=== PATIENT | male | born 1980 | race Caucasian/White ===

== ENCOUNTER 2018-11-26 11:20 | Emergency (ER) | payer SELFPAY ==
--- NOTE | 2018-11-26 13:32 | EDPHYS ---
Physician Documentation [facility] Name: Fausto Gusman Age: 38 yrs Sex: Male : 1980 Arrival Date: 11/26/2018 Time: 11:24 Bed 11 Private MD: ED Physician Vitor Benton HPI: 11/26 13:29 This 38 yrs old Male presents to ER via Ambulatory with complaints of gs Toothache. 13:29 The patient presents with pain. The problem is located in the lower right second gs bicuspid. Onset: The symptoms/episode began/occurred 1 week(s) ago. Duration: The symptoms are continuous. Associated signs and symptoms: Pertinent negatives: fever, redness in area, swelling. Severity of symptoms: At their worst the symptoms were moderate, in the emergency department the symptoms are unchanged. The patient has experienced similar episodes in the past, a few times. Historical: - Allergies: 11:38 No Known Allergies; hj - Home Meds: 11:38 None [Active]; hj - PMHx: 11:38 None; hj - PSHx: 11:38 None; hj - Immunization history:: Adult Immunizations not up to date. - Social history:: Smoking status: Patient/guardian denies using tobacco, Patient/guardian denies using alcohol. - Ebola Screening: : Patient negative for fever greater than or equal to 101.5 degrees Fahrenheit, and additional compatible Ebola Virus Disease symptoms Patient denies exposure to infectious person Patient denies travel to an Ebola-affected area in the 21 days before illness onset. ROS: 13:29 All other systems are negative. gs Exam: 13:29 Head/Face: Normocephalic, atraumatic. Eyes: Pupils equal round and reactive to light, gs extra-ocular motions intact. Lids and lashes normal. Conjunctiva and sclera are non-icteric and not injected. Cornea within normal limits. Periorbital areas with no swelling, redness, or edema. Neck: Trachea midline, no thyromegaly or masses palpated, and no cervical lymphadenopathy. Supple, full range of motion without nuchal rigidity, or vertebral point tenderness. No Meningismus. Cardiovascular: Regular rate and rhythm with a normal S1 and S2. No gallops, murmurs, or rubs. Normal PMI, no JVD. No pulse deficits. Respiratory: Lungs have equal breath sounds bilaterally, clear to auscultation and percussion. No rales, rhonchi or wheezes noted. No increased work of breathing, no retractions or nasal flaring. Skin: Warm, dry with normal turgor. Normal color with no rashes, no lesions, and no evidence of cellulitis. MS/ Extremity: Pulses equal, no cyanosis. Neurovascular intact. Full, normal range of motion. Neuro: Awake and alert, GCS 15, oriented to person, place, time, and situation. Cranial nerves II-XII grossly intact. Motor strength 5/5 in all extremities. Sensory grossly intact. Cerebellar exam normal. Normal gait. 13:29 Constitutional: The patient appears alert, awake. 13:29 ENT: Dental exam: abscess, is not appreciated, cellulitis, is not appreciated, missing teeth, diffusely. Vital Signs: 11:38 BP 133 / 93; Pulse 90; Resp 18; Temp 98.1(O); Pulse Ox 97% on R/A; Weight 83.91 kg; Height 5 ft. 6 in. (167.64 cm); Pain 3/10; 11:38 Body Mass Index 29.86 (83.91 kg, 167.64 cm) MDM: 12:54 Patient medically screened. 13:29 Data reviewed: vital signs, nurses notes. Medical screen evaluation completed. [facility] emergency medical condition absent. Administered Medications: No medications were administered Disposition: 11/26/18 13:32 Discharged to Home. Impression: Encounter for screening, unspecified. - Condition is Stable. - Medication Reconciliation Form, Thank You Letter, Antibiotic Education, Prescription Opioid Use form. - Follow up: Private Physician; When: 2 - 3 days; Reason: Re-evaluation by your physician. Signatures: Becca Jameson RN RN Jeronimo Flores RN RN Vitor Benton MD MD Corrections: (The following items were deleted from the chart) 13:32 13:32 11/26/2018 13:32 Discharged to Home. Impression: Encounter for screening, iw unspecified. Condition is Stable. Forms are Medication Reconciliation Form, Thank You Letter, Antibiotic Education, Prescription Opioid Use. Follow up: Private Physician; When: 2 - 3 days; Reason: Re-evaluation by your physician.
--- NOTE | 2018-11-26 13:32 | ER ---
Nurse's Notes [facility] Name: Fausto Gusman Age: 38 yrs Sex: Male : 1980 Arrival Date: 11/26/2018 Time: 11:24 Bed 11 Private MD: Diagnosis: Encounter for screening, unspecified Presentation: 11/26 11:36 Presenting complaint: Patient states: i have an abscess tooth, its been getting worse;. hj Transition of care: patient was not received from another setting of care. Onset of symptoms was November 26, 2018. Risk Assessment: Do you want to hurt yourself or someone else? Patient reports no desire to harm self or others. Initial Sepsis Screen: Does the patient meet any 2 criteria? Yes Does the patient have a suspected source of infection? Yes:. Care prior to arrival: None. 11:36 Method Of Arrival: Ambulatory 11:36 Acuity: ROSSANA 4 hj Triage Assessment: 11:37 General: Appears in no apparent distress. uncomfortable, Behavior is calm, cooperative, hj appropriate for age. Pain: Complains of pain in tooth. EENT: Reports pain. Historical: - Allergies: 11:38 No Known Allergies; hj - Home Meds: 11:38 None [Active]; hj - PMHx: 11:38 None; hj - PSHx: 11:38 None; hj - Immunization history:: Adult Immunizations not up to date. - Social history:: Smoking status: Patient/guardian denies using tobacco, Patient/guardian denies using alcohol. - Ebola Screening: : Patient negative for fever greater than or equal to 101.5 degrees Fahrenheit, and additional compatible Ebola Virus Disease symptoms Patient denies exposure to infectious person Patient denies travel to an Ebola-affected area in the 21 days before illness onset. Screenin:37 Abuse screen: Denies threats or abuse. Denies injuries from another. Nutritional hj screening: No deficits noted. Tuberculosis screening: No symptoms or risk factors identified. Fall Risk None identified. Assessment: 13:00 General: Appears in no apparent distress. Behavior is calm, cooperative. Pain: iw Complains of pain in lower right second bicuspid. Neuro: Level of Consciousness is awake, alert, obeys commands, Oriented to person, place, time, situation, Moves all extremities. Full function. Cardiovascular: Patient's skin is warm and dry. Respiratory: Respiratory effort is even, unlabored, Respiratory pattern is regular. GI: No signs and/or symptoms were reported involving the gastrointestinal system. Derm: Skin is intact, is healthy with good turgor. Musculoskeletal: Range of motion: intact in all extremities. Vital Signs: 11:38 BP 133 / 93; Pulse 90; Resp 18; Temp 98.1(O); Pulse Ox 97% on R/A; Weight 83.91 kg; hj Height 5 ft. 6 in. (167.64 cm); Pain 3/10; 11:38 Body Mass Index 29.86 (83.91 kg, 167.64 cm) ED Course: 11:24 Patient arrived in ED. rg4 11:37 Triage completed. hj 11:38 Arm band placed on right wrist. hj 11:38 Patient has correct armband on for positive identification. Bed in low position. Call light in reach. Side rails up X 1. 12:24 Becca Jameson RN is Primary Nurse. iw 12:27 Vitor Benton MD is Attending Physician. gs 13:31 No provider procedures requiring assistance completed. Patient did not have IV access iw during this emergency room visit. Administered Medications: No medications were administered Outcome: 13:32 Discharge ordered by . gs 13:32 Patient left the ED. iw 13:32 Medical screen evaluation completed per provider. Patient declined treatment. iw 13:32 Condition: good 13:32 Following a medical screening exam, the patient was provided information regarding alternative care sites and resources available per registration personnel. Signatures: Becca Jameson RN RN Jeronimo Flores RN RN Liz Boateng 4 Vitor Benton MD MD gs Corrections: (The following items were deleted from the chart) 11:40 11:38 Pulse 90bpm; Resp 18bpm; Pulse Ox 97% RA; Temp 98.1F Oral; 83.91 kg; Height 5 ft. hj 6 in.; BMI: 29.8; Pain 3/10; hj
== END 2018-11-26 13:32 | disposition home or self-care (01) ==
LOC: ER 11:20
DX: Z13.9 Encounter for screening, unspecified (principal); K08.89 Other specified disorders of teeth and supporting structures
CPT/HCPCS: 99281

== ENCOUNTER 2019-12-05 00:01 | Inpatient (IN) | payer SELFPAY ==
[2019-12-05] MEDS ORDERED: ONDANSETRON 4 MG/2 ML VIAL ONE ×2 (00:28→07:05)
[2019-12-05] MEDS ORDERED: KETOROLAC 30 MG/ML INJ ONE (00:28)
[2019-12-05] MEDS ORDERED: NA CHLORIDE 0.9% 1,000 ML ONE ×4 (00:28→08:24)
[2019-12-05 00:53] LABS: Absolute Lymphocytes (CBC) 0.6 K/uL (0.7-4.9); Basophils % 0.3 % (0-1.3); Hematocrit 38.6 % (39.6-49.0); Lymphocytes % 3.3 % (15.3-44.8); MPV 8.4 fL (7.6-11.3); RBC Red Blood Cell Count 4.54 M/uL (4.33-5.43)
[2019-12-05 01:02] LABS: ALT/SGPT 18 U/L (12-78); AST/SGOT 12 U/L (15-37); Albumin 3.5 g/dL (3.4-5.0); Alkaline Phosphatase 159 U/L (45-117); BUN Blood Urea Nitrogen 13 mg/dL (7-18); Bicarbonate 27 mmol/L (21-32); Bilirubin Direct 0.1 mg/dL (0-0.2); Bilirubin Total 0.6 mg/dL (0.2-1.0); Glucose Level 315 mg/dL (74-106); Lipase 46 U/L (73-393); Potassium 4.1 mmol/L (3.5-5.1); Sodium Level 132 mmol/L (136-145)
[2019-12-05 01:55] LABS: Blood Morphology Comment NOT SEEN (NOT SEEN); Platelet Estimate ADEQ
[2019-12-05 03:31] LABS: Urine Bacteria <20 /HPF (NONE SEEN); Urine RBC <5 /HPF (NONE SEEN)
[2019-12-05 03:32] LABS: Urine Blood TRACE (NEG); Urine Glucose 2+ (NEG); Urine Protein NEGATIVE (NEG); Urine Specific Gravity <1.005 (1.005-1.030); Urine pH 5.5 (5.0-7.0)
[2019-12-05 03:32] LABS: Urine Urothelial Cells <5 /HPF (NONE SEEN)
[2019-12-05] MEDS ORDERED: PIPER/TAZO/NS 3.375gm 3.375 GM/100 ML BAG ONE (03:44)
--- NOTE | 2019-12-05 03:48 | ER ---
Nurse's Notes [facility] Name: Fausto Gusman Age: 39 yrs Sex: Male : 1980 Arrival Date: 12/05/2019 Time: 00:05 Bed 8 Private MD: Diagnosis: Acute appendicitis Presentation: 12/05 00:16 Presenting complaint: Patient states: he has been having right lower quad pain since bb yesterday the pain is constant, dull, and currently 5/10 he vomited x 1 today, denies diarrhea or fever. Transition of care: patient was not received from another setting of care. Onset of symptoms was December 03, 2019. Risk Assessment: Do you want to hurt yourself or someone else? Patient reports no desire to harm self or others. Initial Sepsis Screen: Does the patient meet any 2 criteria? No. Patient's initial sepsis screen is negative. Does the patient have a suspected source of infection? No. Patient's initial sepsis screen is negative. Care prior to arrival: None. 00:16 Method Of Arrival: Ambulatory bb 00:16 Acuity: ROSSANA 3 bb Historical: - Allergies: 00:18 No Known Allergies; bb - Home Meds: 00:18 None [Active]; bb - PMHx: 00:18 None; bb - PSHx: 00:18 None; bb - Immunization history:: Adult Immunizations up to date. - Coronavirus screen:: The patient has NOT traveled to [place] in the past 14 days. Proceed with normal triage process as indicated. - Social history:: Smoking status: Patient denies any tobacco usage or history of. - Ebola Screening: : No symptoms or risks identified at this time. Screenin:18 Abuse screen: Denies threats or abuse. Denies injuries from another. Nutritional sg screening: No deficits noted. Tuberculosis screening: No symptoms or risk factors identified. Never had TB. Fall Risk None identified. Assessment: 00:18 General: Appears in no apparent distress. uncomfortable, well groomed, well developed, sg well nourished, Behavior is calm, cooperative, appropriate for age. Pain: Complains of pain in abdomen Quality of pain is described as aching. Neuro: Level of Consciousness is awake, alert, obeys commands, Oriented to person, place, time, Speech is normal, Facial symmetry appears normal. Cardiovascular: Patient's skin is warm and dry. Chest pain is denied. Respiratory: Airway is patent Respiratory effort is even, unlabored, Respiratory pattern is regular, symmetrical. GI: Bowel sounds present X 4 quads. Abd is soft and non tender X 4 quads. GI: Reports lower abdominal pain, upper abdominal pain, nausea. : No signs and/or symptoms were reported regarding the genitourinary system. EENT: No signs and/or symptoms were reported regarding the EENT system. Derm: Skin is pink, warm \T\ dry. Musculoskeletal: Circulation, motion, and sensation intact. Range of motion: intact in all extremities. 02:14 Reassessment: Patient appears in no apparent distress at this time. Patient and/or rv family updated on plan of care and expected duration. Pain level reassessed. Patient is alert, oriented x 3, equal unlabored respirations, skin warm/dry/pink. Patient denies pain at this time. Patient states feeling better. Patient states symptoms have improved. 03:48 Reassessment: Patient appears in no apparent distress at this time. Patient and/or rv family updated on plan of care and expected duration. Pain level reassessed. Patient is alert, oriented x 3, equal unlabored respirations, skin warm/dry/pink. PATIENT IS FOR REFERRAL TO SURGERY. AWAITING ADMISSION ORDERS. PATIENT IS ALERT AND ORIENTED. DENIES ANY PAIN AND NAUSEA. Patient denies pain at this time. Patient states feeling better. Patient states symptoms have improved. 05:26 Reassessment: Patient appears in no apparent distress at this time. Patient and/or rv family updated on plan of care and expected duration. Pain level reassessed. Patient is alert, oriented x 3, equal unlabored respirations, skin warm/dry/pink. patient is asleep comfortably on the bed. still tachycardic at 120s. afebrile. still awaiting room assignment. Vital Signs: 00:18 BP 135 / 80; Pulse 115; Resp 18 S; Temp 100(O); Pulse Ox 96% on R/A; Weight 81.65 kg bb (R); Height 5 ft. 5 in. (165.10 cm) (R); Pain 5/10; 01:00 BP 124 / 70; Pulse 106; Resp 17; Pulse Ox 97% on R/A; rv 02:08 BP 125 / 76; Pulse 101; Resp 18; Temp 99.4; Pulse Ox 96% on R/A; rv 02:13 Pain 0/10; rv 02:35 BP 123 / 72; Pulse 104; Resp 19; Pulse Ox 100% ; Pain 0/10; rv 03:00 BP 124 / 75; Pulse 101; Resp 18; Pulse Ox 97% on R/A; rv 03:30 BP 123 / 73; Pulse 100; Resp 18; Temp 98.9(O); Pulse Ox 97% on R/A; rv 04:00 BP 135 / 79; Pulse 104; Resp 16; Pulse Ox 97% on R/A; rv 04:30 BP 135 / 78; Pulse 109; Resp 17; Pulse Ox 96% on R/A; rv 05:00 BP 153 / 89; Pulse 114; Resp 16; Pulse Ox 96% on R/A; rv 00:18 Body Mass Index 29.95 (81.65 kg, 165.10 cm) bb ED Course: 00:05 Patient arrived in ED. jg7 00:09 Oscar Herzog NP is PHCP. pm1 00:09 Aniket Jay MD is Attending Physician. pm1 00:18 Triage completed. bb 00:18 Daniel Catalan, LUZ is Primary Nurse. sg 00:18 Arm band placed on Patient placed in an exam room, on a stretcher, on pulse oximetry. bb 00:25 Inserted saline lock: 18 gauge in right forearm, using aseptic technique. Blood rv collected. 02:10 Patient has correct armband on for positive identification. Placed in gown. Bed in low rv position. Call light in reach. Side rails up X 1. Pulse ox on. NIBP on. 03:16 CT Abd/Pelvis - IV Contrast Only In Process Unspecified. EDMS 03:47 Nicholas Núñez MD is Hospitalizing Provider. pm1 06:21 No provider procedures requiring assistance completed. Patient admitted, IV remains in rv place. Administered Medications: 00:28 Drug: NS 0.9% 1000 ml Route: IV; Rate: 1000 ml; Site: right antecubital; sg 02:14 Follow up: IV Status: Completed infusion; IV Intake: 1000ml rv 00:28 Drug: TORadol - Ketorolac 15 mg Route: IVP; Site: right antecubital; sg 02:13 Follow up: Pain 0/10 Adult; Response: No adverse reaction; Marked relief of symptoms; rv Pain is decreased 00:28 Drug: Zofran 4 mg Route: IVP; Site: right antecubital; sg 02:13 Follow up: Response: No adverse reaction; Nausea is decreased rv 03:45 Drug: Zosyn 3.375 grams Route: IVPB; Infused Over: 60 mins; Site: right forearm; rv 06:21 Follow up: IV Status: Completed infusion rv 03:46 Drug: NS 0.9% 1000 ml Route: IV; Rate: 125 ml/hr; Site: right forearm; rv 06:21 Follow up: IV Status: Completed infusion rv 03:46 CANCELLED (Duplicate Order): NS 0.9% 1000 ml IV at 125 ml/hr continuous rv Intake: 02:14 IV: 1000ml; Total: 1000ml. rv Outcome: 03:47 Decision to Hospitalize by Provider. pm1 05:56 Patient left the ED. rv 06:22 Admitted to Med/surg accompanied by tech, via wheelchair, room 214, with chart, Report rv called to BRIAN ESCOBAR 06:22 Condition: good 06:22 Discharge instructions given to patient, Instructed on the need for admit, Demonstrated understanding of instructions. Signatures: Dispatcher [employer] EDMS Daniel Catalan RN RN sg Ballard, Brenda, RN RN bb Marinas, Patrick, EBENEZER LICENSED CLINICAL PSYCHOLOGIST pm1 Pramod Arias RN RN rv Juani Dominguezg7 Corrections: (The following items were deleted from the chart) 03:48 03:30 BP 123 / 73; Pulse 100bpm; Resp 18bpm; Pulse Ox 97% RA; rv rv
--- NOTE | 2019-12-05 03:49 | EDPHYS ---
Physician Documentation [facility] Name: Fausto Gusman Age: 39 yrs Sex: Male : 1980 Arrival Date: 12/05/2019 Time: 00:05 Bed 8 Private MD: ED Physician Aniket Jay HPI: 12/05 02:04 This 39 yrs old Male presents to ER via Ambulatory with complaints of pm1 Abdominal Pain. 02:04 The patient presents with abdominal pain right lower quadrant. pm1 02:05 Onset: The symptoms/episode began/occurred yesterday. The symptoms do not radiate. pm1 Associated signs and symptoms: Pertinent positives: vomit x 1, Pertinent negatives: diarrhea, dysuria, fever. The symptoms are described as achy, constant. Modifying factors: The symptoms are alleviated by nothing, the symptoms are aggravated by nothing. Severity of pain: in the emergency department the pain is actually worse. The patient has not experienced similar symptoms in the past. Historical: - Allergies: 00:18 No Known Allergies; bb - Home Meds: 00:18 None [Active]; bb - PMHx: 00:18 None; bb - PSHx: 00:18 None; bb - Immunization history:: Adult Immunizations up to date. - Coronavirus screen:: The patient has NOT traveled to [place] in the past 14 days. Proceed with normal triage process as indicated. - Social history:: Smoking status: Patient denies any tobacco usage or history of. - Ebola Screening: : No symptoms or risks identified at this time. ROS: 02:05 Constitutional: Negative for fever, chills, and weight loss, Cardiovascular: Negative pm1 for chest pain, palpitations, and edema, Respiratory: Negative for shortness of breath, cough, wheezing, and pleuritic chest pain. 02:05 : Negative for injury, bleeding, discharge, and swelling, MS/Extremity: Negative for injury and deformity, Skin: Negative for injury, rash, and discoloration, Neuro: Negative for headache, weakness, numbness, tingling, and seizure. 02:05 Abdomen/GI: Positive for abdominal pain, nausea and vomiting, of the right lower quadrant, Negative for diarrhea, constipation. 02:05 Back: Positive for flank pain, on the right. Exam: 02:05 Constitutional: This is a well developed, well nourished patient who is awake, alert, pm1 and in no acute distress. Head/Face: Normocephalic, atraumatic. Neck: Trachea midline, no thyromegaly or masses palpated, and no cervical lymphadenopathy. Supple, full range of motion without nuchal rigidity, or vertebral point tenderness. No Meningismus. Chest/axilla: Normal chest wall appearance and motion. Nontender with no deformity. No lesions are appreciated. Cardiovascular: Regular rate and rhythm with a normal S1 and S2. No gallops, murmurs, or rubs. Normal PMI, no JVD. No pulse deficits. Respiratory: Lungs have equal breath sounds bilaterally, clear to auscultation and percussion. No rales, rhonchi or wheezes noted. No increased work of breathing, no retractions or nasal flaring. 02:05 Back: No spinal tenderness. No costovertebral tenderness. Full range of motion. Skin: Warm, dry with normal turgor. Normal color with no rashes, no lesions, and no evidence of cellulitis. MS/ Extremity: Pulses equal, no cyanosis. Neurovascular intact. Full, normal range of motion. 02:05 Abdomen/GI: Inspection: abdomen appears normal, Bowel sounds: normal, Palpation: soft, moderate abdominal tenderness, in the right lower quadrant, mass, is not appreciated, rebound tenderness, is not appreciated. 02:05 Neuro: Orientation: is normal, Motor: is normal, moves all fours. Vital Signs: 00:18 BP 135 / 80; Pulse 115; Resp 18 S; Temp 100(O); Pulse Ox 96% on R/A; Weight 81.65 kg bb (R); Height 5 ft. 5 in. (165.10 cm) (R); Pain 5/10; 01:00 BP 124 / 70; Pulse 106; Resp 17; Pulse Ox 97% on R/A; rv 02:08 BP 125 / 76; Pulse 101; Resp 18; Temp 99.4; Pulse Ox 96% on R/A; rv 02:13 Pain 0/10; rv 02:35 BP 123 / 72; Pulse 104; Resp 19; Pulse Ox 100% ; Pain 0/10; rv 03:00 BP 124 / 75; Pulse 101; Resp 18; Pulse Ox 97% on R/A; rv 03:30 BP 123 / 73; Pulse 100; Resp 18; Temp 98.9(O); Pulse Ox 97% on R/A; rv 04:00 BP 135 / 79; Pulse 104; Resp 16; Pulse Ox 97% on R/A; rv 04:30 BP 135 / 78; Pulse 109; Resp 17; Pulse Ox 96% on R/A; rv 05:00 BP 153 / 89; Pulse 114; Resp 16; Pulse Ox 96% on R/A; rv 00:18 Body Mass Index 29.95 (81.65 kg, 165.10 cm) bb MDM: 00:11 Patient medically screened. serjio 02:12 Data reviewed: vital signs. Data interpreted: Pulse oximetry: on room air is 96 %. pm1 Interpretation: normal. 03:33 Counseling: I had a detailed discussion with the patient and/or guardian regarding: the pm1 historical points, exam findings, and any diagnostic results supporting the discharge/admit diagnosis, lab results, radiology results, the need for further work-up and treatment in the hospital. 03:39 ED course: Patient last ate or drank at 1800 yesterday. pm1 03:46 Physician consultation: Nicholas Núñez MD was called at 03:46, was contacted at 03:46, pm1 regarding admission, and will see patient in OR, at 0700. 12/05 00:22 Order name: Basic Metabolic Panel; Complete Time: 01:34 pm12/05 00:22 Order name: CBC with Diff; Complete Time: 02:12 pm12/05 00:22 Order name: Creatinine for Radiology pm1 12/05 00:22 Order name: Hepatic Function; Complete Time: :34 pm12/05 00:22 Order name: Lipase; Complete Time: :34 pm12/05 00:22 Order name: Urine Microscopic Only; Complete Time: 03:40 pm1 12/05 00:22 Order name: CT Abd/Pelvis - IV Contrast Only pm1 12/05 01:18 Order name: Manual Differential; Complete Time: 02:12 EDMS 12/05 02:32 Order name: Urine Dipstick--Ancillary (enter results); Complete Time: 03:40 ar5 12/05 00:22 Order name: IV Saline Lock; Complete Time: 00:31 pm1 12/05 00:22 Order name: Labs collected and sent; Complete Time: 00:31 pm1 12/05 00:22 Order name: Urine Dipstick-Ancillary (obtain specimen); Complete Time: 02:20 pm1 12/05 03:39 Order name: NPO; Complete Time: 03:46 pm1 Administered Medications: 00:28 Drug: NS 0.9% 1000 ml Route: IV; Rate: 1000 ml; Site: right antecubital; sg 02:14 Follow up: IV Status: Completed infusion; IV Intake: 1000ml rv 00:28 Drug: TORadol - Ketorolac 15 mg Route: IVP; Site: right antecubital; sg 02:13 Follow up: Pain 0/10 Adult; Response: No adverse reaction; Marked relief of symptoms; rv Pain is decreased 00:28 Drug: Zofran 4 mg Route: IVP; Site: right antecubital; sg 02:13 Follow up: Response: No adverse reaction; Nausea is decreased rv 03:45 Drug: Zosyn 3.375 grams Route: IVPB; Infused Over: 60 mins; Site: right forearm; rv 06:21 Follow up: IV Status: Completed infusion rv 03:46 Drug: NS 0.9% 1000 ml Route: IV; Rate: 125 ml/hr; Site: right forearm; rv 06:21 Follow up: IV Status: Completed infusion rv 03:46 CANCELLED (Duplicate Order): NS 0.9% 1000 ml IV at 125 ml/hr continuous rv Disposition: 07:07 Co-signature as Attending Physician, Aniket Jay MD I agree with the assessment and serjio plan of care. Disposition: 12/05/19 03:47 Hospitalization ordered by Nicholas Núñez for Inpatient Admission. Preliminary diagnosis is Acute appendicitis. - Bed requested for Telemetry/MedSurg (Inpatient). - Status is Inpatient Admission. rv - Condition is Stable. - Problem is new. - Symptoms have improved. Signatures: Dispatcher [employer] EDMS Daniel Catalan RN RN sg Anderson, Corey, MD MD cha Ballard, Brenda, RN RN bb Garcia, Cindy, RN RN cg Marinas, Patrick, NP INDEPENDENT DISTRIBUTOR pm1 Pramod Arias RN RN rv Corrections: (The following items were deleted from the chart) 03:46 03:46 NS 0.9% 1000 ml IV at 125 ml/hr continuous ordered. rv rv 05:20 03:47 Hospitalization Ordered by Nicholas Wilton MD for Inpatient Admission. Preliminary cg diagnosis is Acute appendicitis. Bed requested for Telemetry/MedSurg (Inpatient). Status is Inpatient Admission. Condition is Stable. Problem is new. Symptoms have improved. pm1 05:56 05:20 12/05/2019 03:47 Hospitalization Ordered by Nicholas Núñez MD for Inpatient rv Admission. Preliminary diagnosis is Acute appendicitis. Bed requested for Telemetry/MedSurg (Inpatient). Status is Inpatient Admission. Condition is Stable. Problem is new. Symptoms have improved. cg
[2019-12-05] MEDS ORDERED: ONDANSETRON 4 MG/2 ML VIAL IV PRN ×2 (05:51→08:31)
[2019-12-05] MEDS ORDERED: MORPHINE 4 MG/ML SYR IV PRN (05:51)
[2019-12-05] MEDS: NA CHLORIDE 0.9% 1,000 ML IV SCH ×2 (05:51→16:39)
[2019-12-05] MEDS ORDERED: PIPER/TAZO/NS 3.375gm 3.375 GM/100 ML BAG IVPB SCH (06:00)
[2019-12-05 06:36] VITALS: BMI 29.9
[2019-12-05] MEDS ORDERED: propofoL 200 MG/20 ML VIAL IV ONE (07:00)
[2019-12-05] MEDS ORDERED: MIDAZOLAM HCL 2 MG/2 ML INJ ONE (07:01)
[2019-12-05] MEDS ORDERED: GLYCOPYRROLATE 0.2 MG/ML SYR ONE (07:01)
[2019-12-05] MEDS ORDERED: LIDOCAINE 2% MPF 5 ML VIAL ONE (07:01)
[2019-12-05] MEDS ORDERED: ROCURONIUM 50 MG/5 ML VIAL IV ONE (07:02)
[2019-12-05] MEDS ORDERED: FENTANYL CITR 250 MCG/5 ML ONE (07:02)
[2019-12-05] MEDS ORDERED: METRONIDAZOLE 500mg IVPB 500 MG/100 ML BAG IV ONE (07:06)
[2019-12-05] MEDS ORDERED: CEFOXITIN/SWI 1gm 1 GM/10 ML SYR ONE (07:13)
--- NOTE | 2019-12-05 07:26 | PREOPCON ---
Date of Consultation: 12/05/2019 Chief Complaint: Abdominal pain. History Of Present Illness: Patient is a 39-year-old gentleman, who comes in with 2-day history of r ight lower quadrant abdominal pain associated with nausea and vomiting x1. No diarrhea or constipati on. No blood in his stool. No dysuria or hematuria. No sore throat, runny nose, cough, or dizzines s. No chest pain. No fever or chills. Review of Systems: Otherwise unremarkable. Past Medical History: Hypertension; and based on current labs, could be diabetes. Past Surgical History: Negative. Allergies: NONE. Social History: He denies smoking or drinking. Family History: Significant for congestive heart failure. Physical Examination: Vital Signs: On admission were a blood pressure of 135/80, pulse rate of 115, temperature of 100. C urrently, he is afebrile and vitals are stable. General: He is awake, alert, oriented x3. Head and Neck: Cranial nerves 2 through 12 grossly within normal limits. No neck masses. No JVD. Throat clear. Neck is supple. Chest: Clear. Heart: S1 and S2. Abdomen: Soft, nondistended. Positive bowel sounds. Positive right lower quadrant tenderness with rebound. No rigidity or guarding. Extremities: Adequately perfused. Nontender. NEUROLOGIC: Nonfocal. Diagnostic Data: Patient has leukocytosis, 17.9, with a left shift. Electrolytes were reviewed. CT of the abdomen and pelvis shows appendix dilated up to 1.7 cm with a large appendicolith present wit hin the appendix, surrounding inflammatory stranding and air is present. The air is noted surroundin g the tip of the appendix. Assessment: Acute perforated appendicitis. Plan: Admit n.p.o., IV fluid, IV antibiotic, to the OR for laparoscopic appendectomy, possible open. Patient understands risks, benefits, and alternatives and agrees procedure. /MODL Voice ID: [id number] Report ID: [id number]
--- NOTE | 2019-12-05 08:08 | P.OP ---
Preoperative diagnosis: Acute Perforated Appendicitis Postoperative diagnosis: same Primary procedure: Laparoscopic Appendectomy Anesthesia: General Estimated blood loss: minimal Specimen: Appy Findings: as above Complications: None Drain(s): PRADEEP drain Transferred to: Recovery Room Condition: Good
[2019-12-05] MEDS ORDERED: HYDROMORPHONE HCL 1 MG/ML INJ IV PRN (08:31)
[2019-12-05] MEDS: HYDROMORPHONE HCL 1 MG/ML INJ ONE ×2 (08:50→08:55)
--- NOTE | 2019-12-05 08:55 | OP ---
Date of Procedure: 12/05/2019 Surgeon: Nicholas Núñez MD Preoperative Diagnosis: Acute perforated appendicitis. Postoperative Diagnosis: Acute perforated appendicitis. Procedure: Laparoscopic appendectomy. Estimated Blood Loss: Minimal. Specimen: Appendix. Findings: As above. Anesthesia: General. Complications: None. Disposition: Patient tolerated the procedure in stable condition and taken to Recovery in good gener al condition. Procedure In Detail: Patient was brought to the OR and placed in supine position. General anesthesi a was begun. Patient was prepped and draped in usual sterile fashion. Marcaine 0.5% was infiltrated locally. A 15 blade was used to make a 1 cm supraumbilical midline incision. Subcutaneous tissue w as divided. The fascia was identified and divided. A #1 Vicryl stay suture was placed. Peritoneal cavity was entered with blunt dissection. A 12-mm trocar was placed into the peritoneal cavity under direct vision. Pneumoperitoneum was established. Two 5-mm trocar was placed under direct vision, o ne in the suprapubic region one in the left lower quadrant. Laparoscopy revealed acute appendicitis with perforation and pus around the base of the appendix. Mesoappendix and base of the appendix and the cecum clearly identified. Endo-MARVA stapling device used to divide both structures. The appendic olith came out of the appendix where it was divided and this was retrieved as well as the appendix vi a EndoCatch bag. Right lower quadrant irrigated. There was lot of inflammatory tissue where the darius endix had been, therefore I decided to place a Haim-Grajeda drain #10 flat, secured with 3-0 nylon i n the right lower quadrant, pelvis region and the entire area were irrigated, effluent was clear. No evidence of bleeding or bowel injury appreciated. Subsequently, all trocars were removed under dire ct vision. Stay sutures were tied to each other to reapproximate the fascial defect. Subcu wounds w ere irrigated. Bleeding controlled with cautery. 3-0 chromic used to approximate the subcutaneous t issue and david used to close the skin. 2-0 nylon used to secure the tube to the skin as well. St erile dressing was applied. Patient was awakened and taken to Recovery in good general condition. /MODL Voice ID: [id number] Report ID: [id number]
--- NOTE | 2019-12-05 10:02 | RAD REPORT ---
EXAM DESCRIPTION: CT Abdomen and Pelvis With Intravenous Contrast CLINICAL HISTORY: The patient is 39 years old and is Male; RLQ PAIN TECHNIQUE: Axial computed tomography images of the abdomen and pelvis with intravenous contrast. S agittal and coronal reformatted images were created and reviewed. This CT exam was performed using one or more of the following dose reduction techniques: automated exposure control, adjustment of t he mA and/or kV according to patient size, and/or use of iterative reconstruction technique. COMPARISON: No relevant prior studies available. FINDINGS: LUNG BASES: Unremarkable. No mass. No consolidation. ABDOMEN: LIVER: There is a diffuse decrease in hepatic parenchymal density, consistent with fatty infiltr ation. GALLBLADDER AND BILE DUCTS: The gallbladder is physiologically distended. No calcified gallstone s are seen. PANCREAS: No ductal dilation. No mass. SPLEEN: Unremarkable. ADRENALS: Unremarkable. No mass. KIDNEYS AND URETERS: A left renal cyst measuring 1 cm is present. The kidneys enhance symmetrica lly. STOMACH AND BOWEL: The stomach is decompressed. The small bowel is normal in caliber. Stool is p resent throughout colon. There is no bowel obstruction. PELVIS: APPENDIX: The appendix is dilated measuring up to 1.7 cm. A large appendicolith is present withi n the appendix. Surrounding inflammatory stranding and air is present. Air is noted surrounding the t ip of the appendix. BLADDER: Unremarkable. No mass. REPRODUCTIVE: Unremarkable as visualized. ABDOMEN and PELVIS: INTRAPERITONEAL SPACE: Free fluid is present within the right lower quadrant. BONES/JOINTS: No acute fracture. SOFT TISSUES: The soft tissues are normal. VASCULATURE: Unremarkable. No abdominal aortic aneurysm. LYMPH NODES: Unremarkable. No enlarged lymph nodes. IMPRESSION: Acute perforated appendicitis. THIS REPORT CONTAINS FINDINGS THAT MAY BE CRITICAL TO PATIENT CARE: The findings were verbally discussed via telephone conference with PRIYA Herzog by Dr. Lb Harman on 12/05/19 3:32 AM CAPACITY PLANNING ENGINEER .The results were acknowledged and understood. Electronically signed by: Nilam Harman MD 12/05/2019 3:33 AM CAPACITY PLANNING ENGINEER Due to temporary technical issues with the PACS/Fluency reporting system, reports are being signed by the in house radiologist as a courtesy to ensure prompt reporting. The interpreting radiologist is f ully responsible for the content of the report.
[2019-12-05] MEDS: PIPER/TAZO/NS 3.375gm 3.375 GM/100 ML BAG IVPB SCH ×2 (11:07→16:37)
[2019-12-05] MEDS: HYDROCODONE/APAP 7.5/325 MG TAB PO PRN ×3 (11:09→20:38)
[2019-12-05] MEDS ORDERED: GLUCAGON 1 MG/VIAL IM PRN (12:08)
[2019-12-05] MEDS ORDERED: D50W 25 GM/50 ML SYRINGE IV PRN (12:08)
--- NOTE | 2019-12-05 12:08 | P.CNS ---
Date of Consult: 12/05/19 Reason for Consult: Hyperglycemic Requesting Physician: Nicholas Núñez Chief Complaint: Hyperglycemia History of Present Illness: 39-year-old gentleman with no known past medical history presented to the ED with abdominal pain. Patient found to have perforated appendicitis. He underwent laparoscopic appendectomy. The patient was noted to have hyperglycemia, blood sugar up to 315 and there is a concern patient may have diabetes. Hospitalist service is consulted to assist with management. Patient denies any history of diabetes. Allergies No Known Allergies Allergy (Unverified 12/05/19 04:20) Home Medications: NK [No Home Meds] 12/05/19 - Past Medical/Surgical History Diabetic: No -: none -: Laparoscopic appendectomy - Family History Father Medical History: Heart disease, Hypertension Notes: appe. alcoholism. , CHF Mother Medical History: Heart disease, Hypertension - Social History Smoking Status: Never smoker Alcohol use: No CD- Drugs: No Caffeine use: No Place of Residence: Home Review of Systems Other: Except as documented common all of the systems reviewed and negative. Physical Examination Temp Pulse Resp BP Pulse Ox 98.5 F 110 H 18 174/84 H 92 12/05/19 09:30 12/05/19 09:30 12/05/19 09:30 12/05/19 09:30 12/05/19 09:30 General: Alert, In no apparent distress, Oriented x3 HEENT: Mucous membr. moist/pink, Sclerae nonicteric Neck: Supple, JVD not distended Respiratory: Clear to auscultation bilaterally, Normal air movement Cardiovascular: No edema, Normal pulses, Regular rate/rhythm, Normal S1 S2 Capillary refill: <2 Seconds Gastrointestinal: Hypoactive, Tenderness (Diffuse.) Musculoskeletal: No swelling, No erythema Integumentary: No rashes Neurological: Normal speech, Normal strength at 5/5 x4 extr, Cranial nerves 3- 12 intact Laboratory Data (last 24 hrs) 12/05/19 00:25: Creatinine 0.91 12/05/19 00:25: WBC 17.9 H, Hgb 13.5 L, Hct 38.6 L, Plt Count 286 12/05/19 00:25: Sodium 132 L, Potassium 4.1, BUN 13, Creatinine 0.91, Glucose 315 H, Total Bilirubin 0.6, AST 12 L, ALT 18, Alkaline Phosphatase 159 H, Lipase 46 L - Problems (1) Acute appendicitis with appendiceal abscess Current Visit: Yes Status: Acute (2) Hyperglycemia Current Visit: Yes Status: Acute Conclusions/Impression: Continue current antibiotics-IV zosyn. Check hemoglobin A1c. Oral hypoglycemics or diet modifications based on hemoglobin A1c result. Will start Insulin sliding scale. DVT prophylaxis-SCD
[2019-12-05] MEDS: INSULIN -REGULAR HUMAN 50 UNIT/0.5 ML ML SQ SCH ×2 (16:36→20:38)
[2019-12-06] MEDS: PIPER/TAZO/NS 3.375gm 3.375 GM/100 ML BAG IVPB SCH ×3 (00:08→17:17)
[2019-12-06] MEDS: NA CHLORIDE 0.9% 1,000 ML IV SCH ×4 (00:08→13:41)
[2019-12-06] MEDS: HYDROCODONE/APAP 7.5/325 MG TAB PO PRN ×3 (03:06→17:19)
[2019-12-06 05:37] LABS: Absolute Lymphocytes (CBC) 0.7 K/uL (0.7-4.9); Basophils % 0.2 % (0-1.3); Hematocrit 31.8 % (39.6-49.0); Lymphocytes % 5.1 % (15.3-44.8); MPV 8.2 fL (7.6-11.3); RBC Red Blood Cell Count 3.73 M/uL (4.33-5.43)
[2019-12-06] MEDS: INSULIN -REGULAR HUMAN 50 UNIT/0.5 ML ML SQ SCH ×4 (07:56→20:58)
[2019-12-06] MEDS ORDERED: GLUCAGON 1 MG/VIAL IM PRN (11:18)
[2019-12-06] MEDS ORDERED: D50W 25 GM/50 ML SYRINGE IV PRN (11:18)
--- NOTE | 2019-12-06 12:30 | P.PN ---
Subjective Date of Service: 12/06/19 Chief Complaint: Hyperglycemia Patient has no complain today. Hemoglobin A1c results reviewed and indicating full blown DM type 2. Blood glucose readings have also been high. Physical Examination - Vital Signs Temperature: 99.3 F Blood Pressure: 111/64 Pulse: 113 Respirations: 19 Pulse Ox (%): 96 - Physical Exam General: Alert, In no apparent distress, Oriented x3 HEENT: Mucous membr. moist/pink, Sclerae nonicteric Neck: Supple Respiratory: Clear to auscultation bilaterally, Normal air movement Cardiovascular: No edema, Regular rate/rhythm, Normal S1 S2 Capillary refill: <2 Seconds Gastrointestinal: Hypoactive, Soft and benign, Non-distended Musculoskeletal: No swelling, No erythema Integumentary: No rashes Neurological: Normal speech, Normal strength at 5/5 x4 extr Assessment And Plan - Current Problems (Diagnosis) (1) Acute appendicitis with appendiceal abscess Current Visit: Yes Status: Acute (2) Hyperglycemia Current Visit: Yes Status: Acute (3) Diabetes mellitus type 2 in nonobese Current Visit: Yes Status: Acute - Plan Starts Novolin 70/30, 10 units bid and titrate. Continue insulin sliding scale. Start metformin on discharge. Leukocytosis is improving. Continue antibiotics.
--- NOTE | 2019-12-06 15:17 | PN ---
Date of Progress Note: 12/06/2019 Subjective: Patient is awake, alert. No complaint. Objective: Vital Signs: Stable. Afebrile. PRADEEP has 30 mL serosanguineous fluid. Abdomen: Benign. Laboratory Data: White count is down to 13,000. Assessment: Status post laparoscopic appendectomy for perforated appendicitis and newly diagnosed di abetes. Recommendations: I appreciate Dr. Gomez's consultation. Patient is being taught on diabetic inform ation. His sugar is being controlled and diabetic meds will be managed by Dr. Gomez. Continue IV a ntibiotics as ordered. Continue PRADEEP drain, likely home in 24 to 48 hours. /MODL Voice ID: [id number] Report ID: [id number]
[2019-12-06] MEDS: INSULIN 70/30 100 UNITS/ML SQ SCH (17:16)
[2019-12-07] MEDS: PIPER/TAZO/NS 3.375gm 3.375 GM/100 ML BAG IVPB SCH ×3 (00:07→18:26)
[2019-12-07] MEDS: NA CHLORIDE 0.9% 1,000 ML IV SCH ×4 (00:08→20:39)
[2019-12-07] MEDS: HYDROCODONE/APAP 7.5/325 MG TAB PO PRN ×2 (03:43→14:21)
[2019-12-07 05:41] LABS: Absolute Lymphocytes (CBC) 0.7 K/uL (0.7-4.9); Basophils % 0.3 % (0-1.3); Hematocrit 30.3 % (39.6-49.0); Lymphocytes % 4.5 % (15.3-44.8); MPV 8.1 fL (7.6-11.3); RBC Red Blood Cell Count 3.57 M/uL (4.33-5.43)
[2019-12-07 06:03] LABS: BUN Blood Urea Nitrogen 9 mg/dL (7-18); Bicarbonate 26 mmol/L (21-32); Glucose Level 152 mg/dL (74-106); Potassium 3.5 mmol/L (3.5-5.1); Sodium Level 133 mmol/L (136-145)
[2019-12-07] MEDS: INSULIN -REGULAR HUMAN 50 UNIT/0.5 ML ML SQ SCH ×4 (07:30→20:36)
[2019-12-07] MEDS: INSULIN 70/30 100 UNITS/ML SQ SCH ×2 (08:26→18:24)
--- NOTE | 2019-12-07 11:25 | P.PN ---
Subjective Date of Service: 12/07/19 Chief Complaint: Hyperglycemia Subjective: No new changes, Improving Review of Systems 10-point ROS is otherwise unremarkable Physical Examination - Vital Signs Temperature: 98.6 F Blood Pressure: 136/77 Pulse: 95 Respirations: 18 Pulse Ox (%): 94 - Physical Exam General: Alert, In no apparent distress HEENT: Atraumatic, Normocephalic Neck: Supple Respiratory: Clear to auscultation bilaterally Cardiovascular: No edema, Regular rate/rhythm Gastrointestinal: Soft and benign, W/out hepatosplenomegaly Musculoskeletal: No clubbing, No swelling Integumentary: No rashes Neurological: Normal gait, Normal speech Lymphatics: No axilla or inguinal lymphadenopathy External genitalia: Deferred Rectal: Deferred - Studies Laboratory Last Values WBC 14.7 K/uL (4.3-10.9) H 12/07/19 05:14 RBC 3.57 M/uL (4.33-5.43) L 12/07/19 05:14 Hgb 10.7 g/dL (13.6-17.9) L 12/07/19 05:14 Hct 30.3 % (39.6-49.0) L 12/07/19 05:14 MCV 85.1 fL (80-100) 12/07/19 05:14 MCH 30.1 pg (27.0-35.0) 12/07/19 05:14 MCHC 35.4 g/dL (32.0-36.0) 12/07/19 05:14 RDW 12.8 % (12.1-15.2) 12/07/19 05:14 Plt Count 248 K/uL (152-406) 12/07/19 05:14 MPV 8.1 fL (7.6-11.3) 12/07/19 05:14 Neutrophils % 83.9 % (41.7-73.7) H 12/07/19 05:14 Lymphocytes % 4.5 % (15.3-44.8) L 12/07/19 05:14 Monocytes % 10.6 % (3.3-12.3) 12/07/19 05:14 Eosinophils % 0.7 % (0-4.4) 12/07/19 05:14 Basophils % 0.3 % (0-1.3) 12/07/19 05:14 Absolute Neutrophils 12.3 K/uL (1.8-8.0) H 12/07/19 05:14 Segmented Neutrophils 85 % (40-80) H 12/05/19 00:25 Band Neutrophils 3 % (0-1) H 12/05/19 00:25 Absolute Lymphocytes 0.7 K/uL (0.7-4.9) 12/07/19 05:14 Lymphocytes 1 % (15-42) L 12/05/19 00:25 Monocytes 9 % (0-10) 12/05/19 00:25 Absolute Monocytes 1.6 K/uL (0.1-1.3) H 12/07/19 05:14 Eosinophils 1 % (0-3) 12/05/19 00:25 Absolute Eosinophils 0.1 K/uL (0-0.5) 12/07/19 05:14 Absolute Basophils 0.0 K/uL (0-0.5) 12/07/19 05:14 Reactive Lymphocytes 1 % 12/05/19 00:25 Morphology Comment Not seen (NOT SEEN) 12/05/19 00:25 Sodium 133 mmol/L (136-145) L 12/07/19 05:14 Potassium 3.5 mmol/L (3.5-5.1) 12/07/19 05:14 Chloride 100 mmol/L (98-107) 12/07/19 05:14 Carbon Dioxide 26 mmol/L (21-32) 12/07/19 05:14 BUN 9 mg/dL (7-18) 12/07/19 05:14 Creatinine 0.62 mg/dL (0.55-1.3) 12/07/19 05:14 Estimated GFR > 90 mL/min (=/>90) 12/07/19 05:14 Glucose 152 mg/dL (74-106) H 12/07/19 05:14 POC Glucose 138 mg/dl (65-120) H 12/07/19 07:19 Hemoglobin A1c 10.7 % (4.2-6.3) H 12/06/19 04:59 Calcium 8.1 mg/dL (8.5-10.1) L 12/07/19 05:14 Total Bilirubin 0.6 mg/dL (0.2-1.0) 12/05/19 00:25 Direct Bilirubin 0.1 mg/dL (0-0.2) 12/05/19 00:25 AST 12 U/L (15-37) L 12/05/19 00:25 ALT 18 U/L (12-78) 12/05/19 00:25 Alkaline Phosphatase 159 U/L (45-117) H 12/05/19 00:25 Serum Total Protein 8.0 g/dL (6.4-8.2) 12/05/19 00:25 Albumin 3.5 g/dL (3.4-5.0) 12/05/19 00:25 Globulin 4.5 g/dL (2.3-3.5) H 12/05/19 00:25 Albumin/Globulin Ratio 0.8 (1.1-1.8) L 12/05/19 00:25 Lipase 46 U/L (73-393) L 12/05/19 00:25 Urine pH 5.5 (5.0-7.0) 12/05/19 02:32 Ur Specific Dazey <1.005 (1.005-1.030) L 12/05/19 02:32 Glucose (UA)(Auto) 2+ (NEG) 12/05/19 02:32 Urine Ketones 2+ (NEG) H 12/05/19 02:32 Urine Blood Trace (NEG) H 12/05/19 02:32 Urine Nitrite Negative (NEG) 12/05/19 02:32 Ur Leukocyte Esterase Negative (NEG) 12/05/19 02:32 Urine RBC <5 /HPF (NONE SEEN) 12/05/19 02:20 Urine WBC <5 /HPF (<5) 12/05/19 02:20 Ur Squamous Epith Cells HOT PRESS OPERATOR 12/05/19 02:20 Ur Urothelial Cells <5 /HPF (NONE SEEN) 12/05/19 02:20 Urine Bacteria <20 /HPF (NONE SEEN) 12/05/19 02:20 Urine Culture Reflexed Not needed 12/05/19 02:20 Urine Total Protein Negative (NEG) 12/05/19 02:32 Assessment & Plan - Problems (Diagnosis) (1) Acute appendicitis with appendiceal abscess Current Visit: Yes Status: Acute (2) Diabetes mellitus type 2 in nonobese Current Visit: Yes Status: Acute (3) Hyperglycemia Current Visit: Yes Status: Acute Plan: Starts Novolin 70/30, 10 units bid and titrate. Continue insulin sliding scale. Start metformin on discharge. Leukocytosis is improving. Continue antibiotics. The patient looks more comfortable Possibly see in a.m. if cleared by surgery Time Spent Managing Pts Care (In Minutes): 42
--- NOTE | 2019-12-07 15:16 | PN ---
Date of Progress Note: 12/07/2019 Subjective: Patient is awake, alert. No complaints. PRADEEP is putting minimal serosanguineous drainage . White count is still elevated at 13,000. Objective: Vital Signs: Stable. Afebrile. Abdomen: Benign. Assessment: Status post laparoscopic appendectomy for perforated appendicitis. Plan: Continue IV antibiotics. Encourage ambulation and incentive spirometry. Probable discharge i n 24 to 48 hours. /MODL Voice ID: [id number] Report ID: [id number]
[2019-12-08] MEDS: PIPER/TAZO/NS 3.375gm 3.375 GM/100 ML BAG IVPB SCH ×2 (00:15→07:57)
[2019-12-08] MEDS: HYDROCODONE/APAP 7.5/325 MG TAB PO PRN ×2 (02:58→10:41)
[2019-12-08 05:57] LABS: Absolute Lymphocytes (CBC) 0.7 K/uL (0.7-4.9); Basophils % 0.6 % (0-1.3); Hematocrit 30.4 % (39.6-49.0); Lymphocytes % 6.7 % (15.3-44.8); MPV 7.8 fL (7.6-11.3); RBC Red Blood Cell Count 3.55 M/uL (4.33-5.43)
[2019-12-08 06:08] LABS: BUN Blood Urea Nitrogen 6 mg/dL (7-18); Bicarbonate 29 mmol/L (21-32); Glucose Level 153 mg/dL (74-106); Potassium 3.7 mmol/L (3.5-5.1); Sodium Level 137 mmol/L (136-145)
[2019-12-08] MEDS: INSULIN -REGULAR HUMAN 50 UNIT/0.5 ML ML SQ SCH ×2 (07:30→11:30)
[2019-12-08] MEDS: NA CHLORIDE 0.9% 1,000 ML IV SCH ×2 (07:57→13:51)
[2019-12-08] MEDS: INSULIN 70/30 100 UNITS/ML SQ SCH (07:58)
--- NOTE | 2019-12-08 09:39 | P.DS ---
Admission Date: 12/05/19 Discharge Date: 12/08/19 Disposition: ROUTINE DISCHARGE Discharge Condition: GOOD Reason for Admission: Hyperglycemia - Problems (1) Acute appendicitis with appendiceal abscess Current Visit: Yes Status: Acute (2) Diabetes mellitus type 2 in nonobese Current Visit: Yes Status: Acute (3) Hyperglycemia Current Visit: Yes Status: Acute Brief History of Present Illness: 39-year-old gentleman with no known past medical history presented to the ED with abdominal pain. Patient found to have perforated appendicitis. He underwent laparoscopic appendectomy. The patient was noted to have hyperglycemia, blood sugar up to 315 and there is a concern patient may have diabetes. Hospitalist service is consulted to assist with management. Patient denies any history of diabetes. Hospital Course: Started on Novolin 70/30, 10 units bid and titrated . Continue insulin sliding scale. Start metformin on discharge. Leukocytosis is improving. Continued antibiotics. The patient looks more comfortable He responded well to the treatment and is being discharged home today in a stable condition with advice to follow up with PCP in 1 week and also with Dr. Núñez in 1-2 weeks Vital Signs/Physical Exam: Temp Pulse Resp BP Pulse Ox 98.7 F 96 H 18 143/74 H 93 12/08/19 04:00 12/08/19 04:00 12/08/19 04:00 12/08/19 04:00 12/08/19 04:00 General: Alert, In no apparent distress HEENT: Atraumatic, Normocephalic Neck: Supple Respiratory: Clear to auscultation bilaterally Cardiovascular: Normal pulses, Regular rate/rhythm Gastrointestinal: Soft and benign, W/out hepatosplenomegaly Musculoskeletal: No swelling Integumentary: No rashes Neurological: Normal speech, Normal strength at 5/5 x4 extr Laboratory Data at Discharge: WBC 10.5 K/uL (4.3-10.9) D 12/08/19 05:07 Hgb 10.8 g/dL (13.6-17.9) L 12/08/19 05:07 Hct 30.4 % (39.6-49.0) L 12/08/19 05:07 Plt Count 288 K/uL (152-406) 12/08/19 05:07 Sodium 137 mmol/L (136-145) 12/08/19 05:07 Potassium 3.7 mmol/L (3.5-5.1) 12/08/19 05:07 BUN 6 mg/dL (7-18) L 12/08/19 05:07 Creatinine 0.60 mg/dL (0.55-1.3) 12/08/19 05:07 Glucose 153 mg/dL (74-106) H 12/08/19 05:07 Total Bilirubin 0.6 mg/dL (0.2-1.0) 12/05/19 00:25 AST 12 U/L (15-37) L 12/05/19 00:25 ALT 18 U/L (12-78) 12/05/19 00:25 Alkaline Phosphatase 159 U/L (45-117) H 12/05/19 00:25 Lipase 46 U/L (73-393) L 12/05/19 00:25 Home Medications: Insulin 70/30 NPH/Reg Human [Novolin 70/30*] 10 unit SQ BIDAC #1 vial 12/08/19 New Medications: Insulin 70/30 NPH/Reg Human [Novolin 70/30*] 10 unit SQ BIDAC #1 vial Diet: ADA Activity: Ad lasha Followup: Nicholas Núñez MD [ACTIVE - CAN ADMIT] - 1 Week (please call to make an appointment. ) Time spent managing pt's care (in minutes): 39
[2019-12-08 12:24] VITALS: O2SAT 91
[2019-12-08 14:18] VITALS: BP 164/82; TEMP 97.2
--- NOTE | 2019-12-09 02:54 | DS ---
Date of Discharge: 12/08/2019 Admitting Diagnosis: Perforated appendicitis. Discharge Diagnosis: Perforated appendicitis. Hospital Course: The patient is a 39-year-old gentleman who was admitted on the night of , morni ng of , had a perforated appendicitis, was taken to the OR, laparoscopic appendectomy was perform ed, drain was placed. Postoperatively, he is tolerating diet, ambulating. Pain controlled on p.o. p ain medication. White count is normal. There is a slight left shift. PRADEEP drain is putting out minim al serosanguineous fluid and therefore patient will be discharged to home. Disposition: Home. Condition: Stable. Discharge Instructions: Resume home medications and diet would be an 1800-calorie diet. Patient was newly diagnosed with diabetes and the hospitalists were consulted and they have managed his diabetes , provided education as well as medications as needed and he is to follow up with the PCP as an outpa tient. Follow up in my office in a week. Cipro and Flagyl prescription given, Tylenol No.3 for pain . No heavy lifting. May shower and DC PRADEEP drain prior to discharge. Condition is stable. /MODL Voice ID: [id number] Report ID: [id number]
== END 2019-12-08 13:52 | disposition home or self-care (01) | DRG 340 ==
LOC: ER 00:01 → ERHOLD 04:02 → 2ND 05:35
PROVIDERS: ADMIT Surgery; ATTEND Surgery
PROC: 0DTJ4ZZ Resection of Appendix, Percutaneous Endoscopic Approach (ICD-10-PCS; principal; 2019-12-05 07:00)
DX: K35.33 Acute appendicitis with perforation, localized peritonitis, and gangrene, with abscess (principal); I10 Essential (primary) hypertension; E11.65 Type 2 diabetes mellitus with hyperglycemia; Z79.4 Long term (current) use of insulin
CPT/HCPCS: 36415; 74177; 80048; 80076; 81003; 81015; 82947; 83036; 83605; 83690; 85025; 88304; 96361; 96365; 96366; 96375; 99285; J1170; J1815; J2250; J2405; J2543; J2704; J3010; J7030; Q9967

== ENCOUNTER 2023-07-14 15:08 | Emergency (ER) | payer SELFPAY ==
[2023-07-14] MEDS ORDERED: NA CHLORIDE 0.9% 1,000 ML ONE (15:35)
[2023-07-14] MEDS ORDERED: ACETAMINOPHEN 500 MG TAB ONE (15:35)
--- NOTE | 2023-07-14 15:38 | RAD REPORT ---
EXAM DESCRIPTION: Abida Covarrubias (2 Views)07/14/2023 3:30 pm CLINICAL HISTORY: fever COMPARISON: None FINDINGS: The lungs appear clear of acute infiltrate. The heart is normal size IMPRESSION: No acute abnormalities displayed
[2023-07-14 16:00] LABS: Absolute Lymphocytes (CBC) 0.8 K/uL (0.7-4.9); Hematocrit 29.5 % (39.6-49.0); MCV 83.4 fL (80-100); MPV 7.7 fL (7.6-11.3); Platelets 344 thou/uL (152-406); RBC Red Blood Cell Count 3.54 M/uL (4.33-5.43)
[2023-07-14 16:06] LABS: Protime INR 1.23
[2023-07-14 16:20] LABS: Potassium 3.7 mEq/L (3.5-5.1)
[2023-07-14 16:24] LABS: Albumin 2.3 g/dL (3.4-5.0); Bilirubin Direct 0.2 mg/dL (0-0.2); Bilirubin Indirect, Calculated 0.3 mg/dL (0.2-0.8); Bilirubin Total 0.5 mg/dL (0.2-1.0)
--- NOTE | 2023-07-14 16:37 | EDPHYS ---
Physician Documentation [facility] Name: Fausto Gusman Age: 43 yrs Sex: Male : 1980 Arrival Date: 07/14/2023 Time: 15:08 Bed 7 Private MD: ED Physician Zaki Iglesias HPI: 07/14 16:24 This 43 yrs old Male presents to ER via EMS with complaints of High Blood Sugar, ms3 Nausea/Vomiting, Fever, High Blood Pressure. 16:24 43-year-old male with past medical history of diabetes presents via [facility] ms3 for hyperglycemia, shortness of breath, fever that began on Wednesday night. Patient states he has not taken his insulin since June of last year. EMS notes patient's blood glucose level to be 500, temperature 100.1 orally, heart rate 120s, blood pressure 170/70, oxygen saturation 94% on room air. Patient denies pain at this time. Patient denies any alleviating or inciting factors.. Historical: - Allergies: 15:15 No Known Allergies; ld1 - PMHx: 15:15 Diabetes mellitus; ld1 - PSHx: 15:15 Appendectomy; ld1 - Immunization history:: Adult Immunizations up to date. - Social history:: Smoking status: Patient denies any tobacco usage or history of. Patient/guardian denies using alcohol. ROS: 16:24 ENT: Negative for injury, pain, and discharge, Neck: Negative for injury, pain, and ms3 swelling, Cardiovascular: Negative for chest pain, and palpitations. Respiratory: Negative for shortness of breath, cough, wheezing, and pleuritic chest pain, MS/Extremity: Negative for injury and deformity, Skin: Negative for injury, rash, and discoloration, 16:24 Constitutional: Positive for body aches, chills, fever, 16:24 Abdomen/GI: Positive for nausea and vomiting, 16:24 All other systems are negative, Exam: 16:24 Constitutional: This is a well developed, well nourished patient who is awake, alert, ms3 and in no acute distress. Head/Face: Normocephalic, atraumatic. Chest/axilla: Normal chest wall appearance and motion. Nontender with no deformity. Cardiovascular: Regular rate and rhythm with a normal S1 and S2. No gallops, murmurs, or rubs. Normal PMI, no JVD. No pulse deficits. Respiratory: Lungs have equal breath sounds bilaterally, clear to auscultation and percussion. No rales, rhonchi or wheezes noted. No increased work of breathing, no retractions or nasal flaring. Abdomen/GI: Soft, non-tender, with normal bowel sounds. No distension or tympany. No guarding or rebound. No evidence of tenderness throughout. Skin: Warm, dry with normal turgor. Normal color with no rashes, no lesions, and no evidence of cellulitis. MS/ Extremity: Pulses equal, no cyanosis. Neurovascular intact. Full, normal range of motion. 16:24 Cardiovascular: Rate: tachycardic, Rhythm: regular, Pulses: no pulse deficits are appreciated, Heart sounds: normal, normal S1and S2, 16:24 ECG was reviewed by the Attending Physician. Vital Signs: 15:13 BP 196 / 99; Pulse 119; Resp 25; Temp 101(O); Pulse Ox 94% on R/A; Weight 81.65 kg; ld1 Height 5 ft. 8 in. ; Pain 0/10; 15:13 Body Mass Index 27.37 (81.65 kg, 172.72 cm) ld1 15:13 Pain Scale: Adult ld1 MDM: 15:11 Patient medically screened. ms3 16:24 Differential diagnosis: DKA, hyperglycemia, Sepsis. ms3 16:40 Data reviewed: vital signs, nurses notes, lab test result(s), EKG, radiologic studies, ms3 plain films, and as a result, I will discharge patient. I considered the following discharge prescriptions or medication management in the emergency department Medications were administered in the Emergency Department. See MAR. Independent interpretation of the following test(s) in the Emergency Department X-Ray: My interpretation is CXR image reviewed by me does not reveal pna. Historians other than the Patient: EMS: [facility]. Counseling: I had a detailed discussion with the patient and/or guardian regarding the historical points, exam findings, and any diagnostic results supporting the discharge/admit diagnosis, lab results, radiology results, the need for outpatient follow up, to return to the emergency department if symptoms worsen or persist or if there are any questions or concerns that arise at home. Special discussion: I discussed with the patient/guardian in detail that at this point there is no indication for admission to the hospital. It is understood, however, that if the symptoms persist or worsen the patient needs to return immediately for re-evaluation. ED course: On reevaluation patient's symptoms resolved, patient alert and orient x4, no apparent distress, nontoxic-appearing, speaking full sentences. Patient to follow-up with Dr. Solomon in 2 to 3 days. Patient understands and agrees with plan. All questions were answered. Return precautions discussed include worsening symptoms, or any other concerns.. 07/14 15:13 Order name: Flu; Complete Time: 16:05 ms3 07/14 15:13 Order name: COVID-19 SARS RT PCR; Complete Time: 16:31 ms3 07/14 15:13 Order name: CBC with Diff; Complete Time: 16:05 ms3 07/14 15:13 Order name: BMP; Complete Time: 16:31 ms3 07/14 15:20 Order name: Blood Culture Adult (2) ms3 07/14 15:20 Order name: Lactate w/ 2H reflex if indic.; Complete Time: 16:31 ms3 07/14 15:20 Order name: Protime (+inr); Complete Time: 16:31 ms3 07/14 15:20 Order name: Ptt, Activated; Complete Time: 16:31 ms3 07/14 15:20 Order name: LFT's; Complete Time: 16:31 ms3 07/14 15:13 Order name: Chest Pa And Lat (2 Views) XRAY; Complete Time: 16:05 ms3 07/14 15:20 Order name: EKG; Complete Time: 15:21 ms3 07/14 15:20 Order name: Accucheck; Complete Time: 15:57 ms3 07/14 15:20 Order name: Cardiac monitoring; Complete Time: 15:25 ms3 07/14 15:20 Order name: EKG - Nurse/Tech; Complete Time: 15:57 ms3 07/14 15:20 Order name: IV Saline Lock - Large Bore; Complete Time: 15:25 ms3 07/14 15:20 Order name: Labs collected and sent; Complete Time: 15:57 ms3 07/14 15:20 Order name: O2 Per Protocol; Complete Time: 15:25 ms3 07/14 15:20 Order name: O2 Sat Monitoring; Complete Time: 15:25 ms3 07/14 15:20 Order name: Vital Signs; Complete Time: 15:25 ms3 EC:24 Rate is 110 beats/min. Rhythm is regular. Right axis deviation noted. WV interval is ms3 normal. QRS interval is normal. Clinical impression: NSR w/ Non-specific ST/T Changes. Interpreted by me. Reviewed by me. Administered Medications: 15:25 Drug: NS 0.9% IV 1000 ml IV at 1 bolus Per protocol; 1000 mL bolus Route: IV; Rate: 1 ld1 bolus; Site: right antecubital; 15:25 Drug: Acetaminophen PO 1000 mg PO once Route: PO; ld1 Disposition Summary: 07/14/23 16:36 Discharge Ordered Notes: Location: Home ms3 Condition: Stable ms3 Diagnosis - Fever, unspecified ms3 - Leukocytosis ms3 - Type 2 diabetes mellitus with hyperglycemia ms3 - Nausea with vomiting, unspecified ms3 Followup: ms3 - With: Arcenio Solomon DO - When: 2 - 3 days - Reason: Recheck today's complaints Discharge Instructions: - Discharge Summary Sheet ms3 - Type 2 Diabetes Mellitus, Diagnosis, Adult ms3 - Fever, Adult ms3 - Hyperglycemia ms3 - Nausea and Vomiting, Adult ms3 Forms: - Medication Reconciliation Form ms3 - Thank You Letter ms3 - Antibiotic Education ms3 - Prescription Opioid Use ms3 - Patient Portal Instructions ms3 - Leadership Thank You Letter ms3 Prescriptions: - metformin 500 mg Oral tablet - take 1 tablet ORAL route 2 times per day; 40 tablet; Refills: 0, Product ms3 Selection Permitted - ondansetron 4 mg Oral Tablet,disintegrating - take 1 tablet ORAL route every 8 hours; 15 tablet; Refills: 0, Product ms3 Selection Permitted Signatures: Dispatcher [employer] Zaki Abrams DO DO ms3 Zena Iglesias RN RN ld1
--- NOTE | 2023-07-14 16:37 | ER ---
Nurse's Notes [facility] Name: Fausto Gusman Age: 43 yrs Sex: Male : 1980 Arrival Date: 07/14/2023 Time: 15:08 Bed 7 Private MD: Diagnosis: Fever, unspecified;Leukocytosis;Type 2 diabetes mellitus with hyperglycemia;Nausea with vomiting, unspecified Presentation: 07/14 15:13 Chief complaint: EMS states: toned out to patient home for N/V, hyperglycemia, fever. ld1 Coronavirus screen: Client presents with at least one sign or symptom that may indicate coronavirus-19. Standard/surgical mask placed on the client. Ebola Screen: No symptoms or risks identified at this time. Initial Sepsis Screen: Does the patient meet any 2 criteria? RR > 20 per min. Temp <36.0*C (96.8*F)) or > 38.3*C (100.9*F). HR > 90 bpm. Does the patient have a suspected source of infection? No. Patient's initial sepsis screen is negative. Risk Assessment: Do you want to hurt yourself or someone else? Patient reports no desire to harm self or others. Onset of symptoms was July 14, 2023. 15:13 Method Of Arrival: EMS: [facility] ld1 15:13 Acuity: ROSSANA 2 ld1 Triage Assessment: 15:15 General: Appears in no apparent distress. comfortable, Behavior is calm, cooperative, ld1 appropriate for age. Pain: Denies pain. EENT: No signs and/or symptoms were reported regarding the EENT system. Neuro: Level of Consciousness is awake, alert, obeys commands, Oriented to person, place, time, situation. Cardiovascular: Capillary refill < 3 seconds Patient's skin is warm and dry. Rhythm is sinus tachycardia. Respiratory: Airway is patent Respiratory effort is even, unlabored. Respiratory: Reports shortness of breath at rest on exertion the patient has mild shortness of breath. GI: Abdomen is round non-distended, Reports nausea, vomiting. : No signs and/or symptoms were reported regarding the genitourinary system. Derm: Skin temperature is warm. Musculoskeletal: No signs and/or symptoms reported regarding the musculoskeletal system. Historical: - Allergies: 15:15 No Known Allergies; ld1 - PMHx: 15:15 Diabetes mellitus; ld1 - PSHx: 15:15 Appendectomy; ld1 - Immunization history:: Adult Immunizations up to date. - Social history:: Smoking status: Patient denies any tobacco usage or history of. Patient/guardian denies using alcohol. Screenin:16 [facility] ED Fall Risk Assessment (Adult) History of falling in the last 3 months, ld1 including since admission No falls in past 3 months (0 pts). Abuse screen: Denies threats or abuse. Denies injuries from another. Nutritional screening: No deficits noted. Tuberculosis screening: No symptoms or risk factors identified. Assessment: 15:16 Reassessment: See triage assessment. GI: Abdomen is flat, non-distended. ld1 15:57 Reassessment: See triage assessment. aa5 Vital Signs: 15:13 BP 196 / 99; Pulse 119; Resp 25; Temp 101(O); Pulse Ox 94% on R/A; Weight 81.65 kg; ld1 Height 5 ft. 8 in. ; Pain 0/10; 15:13 Body Mass Index 27.37 (81.65 kg, 172.72 cm) ld1 15:13 Pain Scale: Adult ld1 ED Course: 15:11 Patient arrived in ED. ms3 15:12 Zena Iglesias, LUZ is Primary Nurse. ld1 15:13 Zaki Iglesias DO is Attending Physician. ms3 15:15 Triage completed. ld1 15:15 Arm band placed on right wrist. ld1 15:16 Patient has correct armband on for positive identification. Placed in gown. Bed in low ld1 position. Call light in reach. Side rails up X2. pharmacist hospital on. Pulse ox on. NIBP on. Door closed. Noise minimized. Warm blanket given. 15:16 No provider procedures requiring assistance completed. Maintain EMS IV. Dressing ld1 intact. Good blood return noted. Site clean \T\ dry. Gauge \T\ site: 18G RAC. 15:25 COVID-19 SARS RT PCR Sent. ld1 15:25 Flu Sent. ld1 15:31 Chest Pa And Lat (2 Views) XRAY In Process Unspecified. EDMS 15:57 Inserted saline lock: 22 gauge in left forearm, using aseptic technique. Blood aa5 collected. 16:35 Arcenio Solomon DO is Referral Physician. ms3 16:56 IV discontinued, intact, bleeding controlled, No redness/swelling at site. ld1 Administered Medications: 15:25 Drug: NS 0.9% IV 1000 ml IV at 1 bolus Per protocol; 1000 mL bolus Route: IV; Rate: 1 ld1 bolus; Site: right antecubital; 15:25 Drug: Acetaminophen PO 1000 mg PO once Route: PO; ld1 Medication: 15:16 VIS not applicable for this client. ld1 Outcome: 16:36 Discharge ordered by MD. ms3 16:55 Discharged to home ambulatory, ld1 16:55 Condition: stable 16:55 Discharge instructions given to patient, Instructed on discharge instructions, follow up and referral plans. medication usage, Demonstrated understanding of instructions, follow-up care, medications, Prescriptions given X 2, 16:56 Patient left the ED. ld1 Signatures: Dispatcher [employer] EDMS Katie Dale, RN RN aa5 Zaki Iglesias, DO DO ms3 Zena Iglesias RN RN ld1
[2023-07-14 17:01] VITALS: BP 196/99; TEMP 101; O2SAT 94
--- NOTE | 2023-07-15 16:59 | EKG ---
Test Date: 2023-07-14 Test Time: 15:54:01 Industrial Laborer: Mateus SEGOVIA MEASUREMENT RESULTS: Intervals: Rate: 110 [place]: 154 QRSD: 82 QT: 318 QTc: 430 [place]: P: 50 [place]: 154 QRS: 115 T: -2 INTERPRETIVE STATEMENTS: Sinus tachycardia Left posterior fascicular block Abnormal QRS-T angle, consider primary T wave abnormality Abnormal ECG No previous ECG available for comparison Electronically Signed On 07-15-23 16:56:36 CDT by Anibal See
== END 2023-07-14 16:56 | disposition home or self-care (01) ==
LOC: ER 15:08
DX: R50.9 Fever, unspecified (principal); D72.829 Elevated white blood cell count, unspecified; E11.65 Type 2 diabetes mellitus with hyperglycemia; R11.2 Nausea with vomiting, unspecified
CPT/HCPCS: 36415; 71046; 80048; 80076; 83605; 85025; 85610; 85730; 87040; 87635; 87804; 93005; 99285; J7030

== ENCOUNTER 2023-08-14 20:34 | Emergency (ER) | payer SELFPAY ==
--- OUTSIDE RECORDS SUMMARY | 2023-08-14 20:36 | XMS REPORT | Continuity of Care Document ---
:1980 Author Organization [facility] t Address [address] [place] [address] [place] [id number] Care Team Providers Name Role Phone LORENZO MCNAMARA Attending Clinician Unavailable LORENZO MCNAMARA Admitting Clinician Unavailable Problems This patient has no known problems. Allergies, Adverse Reactions, Alerts This patient has no known allergies or adverse reactions. Medications This patient has no known medications. Procedures This patient has no known procedures. Encounters Start End Encounter Admission Attending Care Care Encounter Source Date/Time Date/Time Type Type Clinicians Facility Department ID 2023-07-30 2023-08-07 Inpatient E LORENZO MCNAMARA [facility] [id number] [facility] 13:57:00 16:20:00 67 Results This patient has no known results.
--- NOTE | 2023-08-14 21:03 | RAD REPORT ---
EXAM DESCRIPTION: RAD - Chest Single View - 08/14/2023 8:51 pm CLINICAL HISTORY: SOB COMPARISON: Chest Pa And Lat (2 Views) dated 07/14/2023 FINDINGS: Lines: None. Lungs: Diffuse prominence of the pulmonary interstitium. Pleural: No significant pleural effusions or pneumothorax. Cardiac: Mild cardiomegaly. Mediastinum: Within normal limits. Bones: No acute fractures. Other: None IMPRESSION: Pulmonary edema.
[2023-08-14 21:26] LABS: Absolute Lymphocytes (CBC) 0.8 K/uL (0.7-4.9); Hematocrit 22.3 % (39.6-49.0); MCV 85.3 fL (80-100); MPV 6.4 fL (7.6-11.3); Platelets 445 thou/uL (152-406); RBC Red Blood Cell Count 2.62 M/uL (4.33-5.43)
[2023-08-14 21:30] LABS: Protime INR 1.18
[2023-08-14] MEDS ORDERED: IPRATROPIUM BROM 0.5MG/2.5ML ONE (21:31)
[2023-08-14] MEDS ORDERED: ACETAMINOPHEN 500 MG TAB ONE (21:31)
[2023-08-14] MEDS ORDERED: FUROSEMIDE 40 MG/4 ML VIAL ONE (21:31)
[2023-08-14] MEDS ORDERED: ALBUTEROL 2.5 MG/3 ML NEB SOL ONE (21:31)
[2023-08-14 21:43] LABS: AST/SGOT 19 U/L (15-37); Albumin 1.8 g/dL (3.4-5.0); Alkaline Phosphatase 99 U/L (45-117); BUN Blood Urea Nitrogen 23 mg/dL (7-18); Bicarbonate 27 mEq/L (21-32); Bilirubin Total 0.2 mg/dL (0.2-1.0); Glomerular Filtration Rate 83 ml/min (=/>90); Glucose Level 159 mg/dL (74-106); NT PRO-BNP 4942 pg/mL (<125); Protein, Total 7.4 g/dL (6.4-8.2); Sodium Level 136 mEq/L (136-145)
[2023-08-14 22:00] LABS: ALT/SGPT < 10 U/L (16-61)
[2023-08-14 22:56] LABS: Specific Gravity 1.014 (1.005-1.030); Urine Bacteria None Seen /HPF (<20); Urine Bilirubin NEGATIVE (Negative); Urine Blood 2+ (Negative); Urine Clarity Turbid (Clear); Urine Color Light-Yellow (Yellow); Urine Crystals Unidentified Few /HPF (None Seen); Urine Glucose 1+ (Negative); Urine Mucus Slight /HPF (None Seen); Urine Protein 2+ (Negative); Urine RBC <5 /HPF (None Seen); Urine Urobilinogen Normal (Normal); Urine WBC Clump Rare /HPF (None Seen); Urine pH 5.5 (5.0-7.0)
[2023-08-14] MEDS ORDERED: PIPERACIL/TAZO 3.375 GM VIAL IV ONE (23:06)
[2023-08-14] MEDS ORDERED: VANCOMYCIN 1 GM/VIAL ONE (23:06)
[2023-08-14] MEDS ORDERED: NA CHLORIDE 0.9% 250 ML ONE (23:06)
[2023-08-14] MEDS ORDERED: NA CHLORIDE 0.9% 100 ML ONE (23:07)
--- NOTE | 2023-08-14 23:18 | RAD REPORT ---
EXAM DESCRIPTION: CT - Chest For Pe Angio - 08/14/2023 10:55 pm CLINICAL HISTORY: SOB COMPARISON: No comparisons TECHNIQUE: Dynamically enhanced axial 3 mm thick images of the chest were obtained during administra tion of <100> mL Isovue 370 IV contrast. Coronal and oblique reconstruction images were generated and reviewed. Exam utilizes a protocol for optimal evaluation of pulmonary arterial tree. Maximum intensity projections 3D imaging was utilized All CT scans are performed using dose optimization technique as appropriate and may include automated exposure control or mA/KV adjustment according to patient size. FINDINGS: Chest Wall: No suspicious thyroid nodules or pathologic lymphadenopathy. Lungs: Atelectasis as result of the pleural fluid. Interlobular septal thickening is present. Nodular opacity in the right middle lobe measuring approximately 11 millimeters. Pleura: Small bilateral pleural effusions. Mediastinum/selena: No pathologic lymphadenopathy. Pulmonary arteries/Aorta: Subsegmental pulmonary embolus in the lingula. No aortic aneurysm. Heart: No significant pericardial effusion. Normal heart size. Coronary artery calcifications in the LAD. Upper abdomen: No acute abnormality. Bones: No acute abnormality. IMPRESSION: Positive for pulmonary embolism with single subsegmental pulmonary embolus identified. C lot burden is low. Pulmonary edema with bilateral pleural effusions. Right middle lobe nodule could represent either alveolar edema or sequela of infection. Recommend six -month follow-up chest CT. Regarding PE, conveyed to Igor Saavedra by Dr. Lai at 1113 pm on 08/14/23
--- NOTE | 2023-08-14 23:26 | EDPHYS ---
Physician Documentation [facility] Name: Fausto Gusman Age: 43 yrs Sex: Male : 1980 Arrival Date: 08/14/2023 Time: 20:34 Bed 6 Private MD: ED Physician Ravin Mendoza HPI: 08/14 20:55 This 43 yrs old Male presents to ER via EMS with complaints of Shortness Of Breath. cp 20:55 The patient has shortness of breath at rest. cp 20:55 Onset: The symptoms/episode began/occurred today. Duration: The symptoms are cp continuous, and are steadily getting worse. Associated signs and symptoms: Pertinent positives: diaphoresis, fever, Pertinent negatives: chest pain, productive cough, hemoptysis, vomiting. Severity of symptoms: in the emergency department the symptoms have improved mildly. Patient reports history of right above the knee amputation that was done at [facility] about 10 days ago. Historical: - Allergies: 20:41 No Known Allergies; me1 - PMHx: 20:41 diabetes mellitus; me1 - PSHx: 20:41 Appendectomy; Right AKA; me1 - Immunization history:: Adult Immunizations up to date. - Social history:: Smoking status: Patient denies any tobacco usage or history of. ROS: 21:00 Constitutional: Positive for fever, Negative for body aches, chills, poor PO intake, cp 21:00 Eyes: Negative for injury, pain, redness, and discharge, cp 21:00 ENT: Negative for drainage from ear(s), ear pain, sore throat, difficulty swallowing, difficulty handling secretions, 21:00 Cardiovascular: Positive for edema, Negative for chest pain, 21:00 Respiratory: Positive for shortness of breath, at rest. 21:00 Abdomen/GI: Negative for abdominal pain, vomiting, diarrhea, constipation, 21:00 Neuro: Negative for altered mental status, syncope, 21:00 All other systems are negative, Exam: 21:05 Constitutional: The patient appears in no acute distress, alert, awake, non-toxic, well cp developed, well nourished, diaphoretic, 21:05 Head/Face: Normocephalic, atraumatic. cp 21:05 Eyes: Periorbital structures: appear normal, Conjunctiva: normal, no exudate, no injection, Sclera: no appreciated abnormality, Lids and lashes: appear normal, bilaterally, 21:05 ENT: External ear(s): are unremarkable, Nose: is normal, Mouth: Lips: moist, Oral mucosa: pink and intact, moist, Posterior pharynx: is normal, airway is patent, no erythema, no exudate, 21:05 Neck: ROM/movement: is normal, is supple, without pain, no range of motions limitations, 21:05 Chest/axilla: Inspection: normal, 21:05 Cardiovascular: Rate: tachycardic, Rhythm: regular, Edema: left ankle and foot edema noted, JVD: is not appreciated, 21:05 Respiratory: moderate respiratory distress is noted, Respirations: labored breathing, that is moderate, Breath sounds: decreased breath sounds, that are moderate, stridor, is not appreciated, wheezing: that is mild, is heard diffusely, 21:05 Abdomen/GI: Inspection: obese Palpation: abdomen is soft and non-tender, in all quadrants, 21:05 Musculoskeletal/extremity: Extremities: noted in the right leg: above the knee amputation. surgical site appears to be healing well, 21:05 Neuro: Orientation: to person, place \T\ time. Mentation: is normal, 21:45 ECG was reviewed by the Attending Physician. cp Vital Signs: 20:37 BP 150 / 88; Pulse 125; Resp 24; Temp 101.8(O); Pulse Ox 88% on 6 lpm NC; Weight 82.55 me1 kg; Height 5 ft. 6 in. ; 21:00 BP 147 / 87; Pulse 120; Resp 25; Pulse Ox 92% on 6 lpm NC; me1 21:38 BP 137 / 76; Pulse 116; Resp 21; Pulse Ox 100% on BiPAP; me1 22:00 BP 125 / 73; Pulse 114; Resp 20; Pulse Ox 100% on BiPAP; me1 22:00 BP 124 / 74; Pulse 105; Resp 22; Pulse Ox 100% on BiPAP; me1 23:36 Temp 98.1(O); rv1 11 00:00 BP 109 / 71; Pulse 92; Resp 20; Pulse Ox 100% on BiPAP; me1 00:30 BP 103 / 67; Pulse 93; Resp 20; Pulse Ox 100% on BiPAP; me1 01:00 BP 110 / 70; Pulse 87; Resp 20; Pulse Ox 100% on BiPAP; me1 01:30 BP 99 / 61; Pulse 90; Resp 19; Pulse Ox 100% on BiPAP; me1 02:30 BP 108 / 74; Pulse 87; Resp 17; Pulse Ox 100% on BiPAP; vc1 08/14 20:37 Body Mass Index 29.38 (82.55 kg, 167.64 cm) nd1 MDM: 08/14 20:43 Patient medically screened. cp 23:30 Data reviewed: vital signs, nurses notes, lab test result(s), EKG, radiologic studies, cp CT scan, plain films. 23:30 Antibiotic administration: Zosyn and Vancomycin. Independent interpretation of the cp following test(s) in the Emergency Department EKG: See my EKG interpretation above. Care significantly affected by the following chronic conditions: Diabetes. Counseling: I had a detailed discussion with the patient and/or guardian regarding the historical points, exam findings, and any diagnostic results supporting the discharge/admit diagnosis, lab results, radiology results, the need to transfer to another facility. Response to treatment: the patient's symptoms have markedly improved after treatment. 08/14 20:45 Order name: Blood Culture Adult (2) cp 08/14 20:45 Order name: CBC with Diff; Complete Time: 21:53 cp 08/14 21:53 Interpretation: Normal except: WBC 13.20; RBC 2.62; HGB 7.8; HCT 22.3; PLT 445; RDW cp 15.4; MPV 6.4; JUSTYNA% 83.3; LYM% 6.0; NEUT A 11.0. 08/14 20:45 Order name: CMP; Complete Time: 22:36 cp 08/14 22:36 Interpretation: Normal except: GLUC 159; BUN 23; GFR 83; ALT < 10; CA 8.3; ALB 1.8; cp GLOB 5.6; A/G 0.3. 08/14 20:45 Order name: Lactate w/ 2H reflex if indic.; Complete Time: 21:53 cp 08/14 20:45 Order name: Protime (+inr); Complete Time: 21:53 cp 08/14 20:45 Order name: Ptt, Activated; Complete Time: 21:53 cp 08/14 20:45 Order name: Urinalysis w/ reflexes; Complete Time: 22:58 cp 08/14 22:58 Interpretation: Normal except: UCLA Turbid; UGLUC 1+; UBLD 2+; UPROT 2+. / 20:45 Order name: COVID-19 SARS RT PCR; Complete Time: 22:36 cp 08/14 20:45 Order name: Influenza Screen (a \T\ B); Complete Time: 21:53 08/14 20:46 Order name: Troponin High Sensitivity; Complete Time: 22:36 08/14 22:36 Interpretation: Abnormal: Troponin HS 1300.0. 08/14 20:46 Order name: BNP; Complete Time: 22:36 08/14 22:37 Interpretation: NT PRO-BNP 4942; Reviewed. 08/14 21:45 Order name: Glucose, Ancillary Testing; Complete Time: 21:53 EDMS 08/14 22:58 Order name: ABG 08/15 02:46 Order name: Glucose, Ancillary Testing EDMS 08/14 20:45 Order name: Chest Single View XRAY; Complete Time: 21:53 08/14 21:54 Order name: CT Chest For PE Angio; Complete Time: 23:20 cp 08/14 20:45 Order name: EKG; Complete Time: 20:46 cp 08/14 20:45 Order name: Accucheck; Complete Time: 21:40 cp 08/14 20:45 Order name: Cardiac monitoring; Complete Time: 21:15 cp 08/14 20:45 Order name: EKG - Nurse/Tech; Complete Time: 21:40 08/14 20:45 Order name: IV Saline Lock - Large Bore; Complete Time: 21:15 cp 08/14 20:45 Order name: Labs collected and sent; Complete Time: 21:15 cp 08/14 20:45 Order name: O2 Per Protocol; Complete Time: 21:15 cp 08/14 20:45 Order name: O2 Sat Monitoring; Complete Time: 21:15 cp 08/14 20:45 Order name: Vital Signs; Complete Time: 21:15 cp EC:45 Rate is 113 beats/min. Rhythm is regular. TX interval is normal. QRS interval is cp normal. QT interval is normal. T waves are Inverted in lead aVR. Interpreted by me. Reviewed by me. Administered Medications: 21:27 Drug: DuoNeb Nebulize (2.5 mg - 0.5 mg) 3 ml Nebulizer once Route: Nebulizer; me1 22:49 Follow up: Response: No adverse reaction me1 21:27 Drug: Furosemide IVP 40 mg IVP once; give over 2 minutes Route: IVP; Site: right me1 antecubital; 22:49 Follow up: Response: No adverse reaction me1 21:28 Drug: Acetaminophen PO 1000 mg PO once Route: PO; me1 22:49 Follow up: Response: No adverse reaction me1 23:15 Drug: Piperacillin-Tazobactam IVPB 3.375 grams IVPB once over 60 mins; (mix in NS 100 me1 mL) Route: IVPB; Infused Over: 60 mins; Site: right antecubital; 08/15 00:17 Follow up: IV Status: Completed infusion me1 00:17 Drug: vancoMYCIN IVPB 1 grams IVPB once over 2 hrs Route: IVPB; Infused Over: 2 hrs; me1 Site: right antecubital; 01:05 Drug: Heparin (IA-Bolus No thrombolytic) - HEParin IVP 60 units/kg IVP once; Max 5000 me1 units {Note: per provider.} Route: IVP; Site: left hand; 01:07 Drug: Heparin (DVT/PE Drip) 18 units/kg/hr - ([place] [address] units, D5W IV 500 ml) IV me1 at calculated rate Per protocol; Max initial rate 1800 units/hr {Co-Signature: lg3 (Eugenia Lima RN).} {Note: 1487 units/hr.} Route: IV; Rate: calculated rate; Site: left hand; Disposition: 21:16 Co-signature as Attending Physician, Ravin Mendoza MD I agree with the assessment sp4 and plan of care. I reviewed the patient's care provided by the Advanced Practice Provider and agree with the diagnosis and treatment plan. 08/16 01:33 Critical Care:. cp Disposition Summary: 08/14/23 23:25 Transfer Ordered Notes: Transfer Location: [facility] cp Reason: Higher level of care cp Condition: Stable cp Problem: new cp Symptoms: have improved cp Accepting Physician: Doctor(08/15/23 03:04) vc1 Diagnosis - Unspecified combined systolic (congestive) and diastolic (congestive) heart failure cp - Other pulmonary embolism with acute cor pulmonale cp - Subsequent non-ST elevation (NSTEMI) myocardial infarction cp - Severe sepsis without septic shock cp Forms: - Medication Reconciliation Form cp - SBAR form cp Critical care time excluding procedures: : Critical care time: Bedside Care: 10 minutes, Consultation: 25 minutes. Total time: 35 cp minutes Signatures: Dispatcher [employer] EDMS Aniket Saavedra PA PA cp Calcote, Vanessa RN RN vc1 Ravin Mendoza MD MD sp4 Luly Cardoza RN RN me1 Eugenia Lima RN lg3 Corrections: (The following items were deleted from the chart) 08/14 23:26 23:25 Doctor cp cp 08/15 03:08/14 23:26 Doctor cp vc1 08/16 01:08/14 21:00 Constitutional: Negative for body aches, chills, fever, poor PO intake, cp cp 08/16 01:08/15 21:00 Cardiovascular: Positive for edema, Negative for chest pain, cp cp 08/16 21:00 Respiratory: Positive for shortness of breath, at rest. cp cp 08/16 01:08/15 21:00 Eyes: Negative for injury, pain, redness, and discharge, cp cp 08/16 01:08/15 21:00 ENT: Negative for drainage from ear(s), ear pain, sore throat, difficulty cp swallowing, difficulty handling secretions, cp 08/16 01:08/15 21:00 Abdomen/GI: Negative for abdominal pain, vomiting, diarrhea, constipation, cp cp 08/16 01:08/15 21:00 Neuro: Negative for altered mental status, syncope, cp cp 08/16 01:08/15 21:00 All other systems are negative, cp cp
--- NOTE | 2023-08-14 23:26 | ER ---
Nurse's Notes [facility] Name: Fausto Gusman Age: 43 yrs Sex: Male : 1980 Arrival Date: 08/14/2023 Time: 20:34 Bed 6 Private MD: Diagnosis: Unspecified combined systolic (congestive) and diastolic (congestive) heart failure;Other pulmonary embolism with acute cor pulmonale;Subsequent non-ST elevation (NSTEMI) myocardial infarction;Severe sepsis without septic shock Presentation: 08/14 20:37 Chief complaint: EMS states: toned out for sudden onset of SOB. Room air o2 sat on me1 arrival was in the mid 70s. 88% on 6 LPM via NC. Recent R AKA about 1.5 weeks ago with RUE PICC line in place. Coronavirus screen: Vaccine status: Patient reports being unvaccinated. Ebola Screen: No symptoms or risks identified at this time. Initial Sepsis Screen: Does the patient meet any 2 criteria? RR > 20 per min. HR > 90 bpm. Yes Does the patient have a suspected source of infection? Yes: Skin breakdown/wound. Risk Assessment: Do you want to hurt yourself or someone else? Patient reports no desire to harm self or others. Onset of symptoms was August 14, 2023. 20:37 Method Of Arrival: EMS: [place] [id number] 20:37 Acuity: ROSSANA 3 me1 20:41 Acuity: ROSSANA 2 lg3 Triage Assessment: 20:41 General: Appears distressed, well groomed, well developed, well nourished, Behavior is me1 cooperative, appropriate for age, anxious, Reports sudden onset of SOB just [employer] CHAIR. Denies using home o2. Recent hx of R AKA with PICC line to RUE for abx. Pain: Denies pain. Neuro: Level of Consciousness is awake, alert, obeys commands, Oriented to person, place, time, situation. Cardiovascular: Capillary refill < 3 seconds Patient's skin is warm and dry. tachycardia. Respiratory: Reports shortness of breath at rest labored breathing Airway is patent Respiratory effort is even, labored, Respiratory pattern is symmetrical, tachypnea Onset: The symptoms/episode began/occurred just prior to arrival, the patient has moderate shortness of breath. Musculoskeletal: Amputation of AKA. Historical: - Allergies: 20:41 No Known Allergies; me1 - PMHx: 20:41 diabetes mellitus; me1 - PSHx: 20:41 Appendectomy; Right AKA; me1 - Immunization history:: Adult Immunizations up to date. - Social history:: Smoking status: Patient denies any tobacco usage or history of. Screenin:46 [facility] ED Fall Risk Assessment (Adult) History of falling in the last 3 months, me1 including since admission No falls in past 3 months (0 pts) Confusion or Disorientation No (0 pts) Intoxicated or Sedated No (0 pts) Impaired Gait Yes (1 pt) Mobility Assist Device Used Yes (1 pt) Altered Elimination No (0 pt) Score/Fall Risk Level 0 - 2 = Low Risk. Abuse screen: Denies threats or abuse. Nutritional screening: No deficits noted. Tuberculosis screening: No symptoms or risk factors identified. Assessment: 20:46 General: See triage assessment. . me1 Vital Signs: 20:37 BP 150 / 88; Pulse 125; Resp 24; Temp 101.8(O); Pulse Ox 88% on 6 lpm NC; Weight 82.55 me1 kg; Height 5 ft. 6 in. ; 21:00 BP 147 / 87; Pulse 120; Resp 25; Pulse Ox 92% on 6 lpm NC; me1 21:38 BP 137 / 76; Pulse 116; Resp 21; Pulse Ox 100% on BiPAP; me1 22:00 BP 125 / 73; Pulse 114; Resp 20; Pulse Ox 100% on BiPAP; me1 22:00 BP 124 / 74; Pulse 105; Resp 22; Pulse Ox 100% on BiPAP; me1 23:36 Temp 98.1(O); rv1 1105 00:00 BP 109 / 71; Pulse 92; Resp 20; Pulse Ox 100% on BiPAP; me1 00:30 BP 103 / 67; Pulse 93; Resp 20; Pulse Ox 100% on BiPAP; me1 01:00 BP 110 / 70; Pulse 87; Resp 20; Pulse Ox 100% on BiPAP; me1 01:30 BP 99 / 61; Pulse 90; Resp 19; Pulse Ox 100% on BiPAP; me1 02:30 BP 108 / 74; Pulse 87; Resp 17; Pulse Ox 100% on BiPAP; vc1 11 20:37 Body Mass Index 29.38 (82.55 kg, 167.64 cm) nv1 ED Course: 08/14 20:35 Patient arrived in ED. [email or web address] 20:37 Luly Cardoza, LUZ is Primary Nurse. me1 20:40 Aniket Saavedra PA is PHCP. cp 20:40 Ravin Mendoza MD is Attending Physician. cp 20:41 Triage completed. me1 20:41 Arm band placed on Patient placed in an exam room. me1 20:46 Patient has correct armband on for positive identification. Bed in low position. Call me1 light in reach. Side rails up X2. Provided Education on: POC. Verbalized understanding. . 20:46 No provider procedures requiring assistance completed. Maintain EMS IV. Dressing me1 intact. Good blood return noted. Site clean \T\ dry. Gauge \T\ site: 20 left hand. 20:53 Chest Single View XRAY In Process Unspecified. EDMS 21:14 Inserted saline lock: 20 gauge in right antecubital area, using aseptic technique. me1 21:15 BNP Sent. me1 21:15 Troponin High Sensitivity Sent. me1 21:15 Influenza Screen (a \T\ B) Sent. me1 21:15 COVID-19 SARS RT PCR Sent. me1 21:15 CBC with Diff Sent. me1 21:15 CMP Sent. me1 21:15 Lactate w/ 2H reflex if indic. Sent. me1 21:15 Protime (+inr) Sent. me1 21:15 Ptt, Activated Sent. me1 21:27 Maintain EMS IV. Dressing intact. Good blood return noted. Site clean \T\ dry. Gauge \T\ me 1 site: PICC line to RUE . 21:27 BNP Sent. me1 21:27 Troponin High Sensitivity Sent. me1 21:28 Influenza Screen (a \T\ B) Sent. me1 21:28 COVID-19 SARS RT PCR Sent. me1 21:28 Blood Culture Adult (2) Sent. me1 21:28 CBC with Diff Sent. me1 21:28 CMP Sent. me1 21:28 Lactate w/ 2H reflex if indic. Sent. me1 21:28 Protime (+inr) Sent. me1 21:28 Ptt, Activated Sent. me1 22:02 Notified ED physician of a critical lab result(s). Troponin [id number] called by lab la4 cmm technician Denise Lu. 22:56 CT Chest For PE Angio In Process Unspecified. EDMS 23:32 Initiated transfer with Maggy at [facility]. rv1 08/15 02:42 Patient transferred, IV remains in place. vc1 Administered Medications: 08/14 21:27 Drug: DuoNeb Nebulize (2.5 mg - 0.5 mg) 3 ml Nebulizer once Route: Nebulizer; me1 22:49 Follow up: Response: No adverse reaction me1 21:27 Drug: Furosemide IVP 40 mg IVP once; give over 2 minutes Route: IVP; Site: right nv1 antecubital; 22:49 Follow up: Response: No adverse reaction me1 21:28 Drug: Acetaminophen PO 1000 mg PO once Route: PO; me1 22:49 Follow up: Response: No adverse reaction me1 23:15 Drug: Piperacillin-Tazobactam IVPB 3.375 grams IVPB once over 60 mins; (mix in NS 100 me1 mL) Route: IVPB; Infused Over: 60 mins; Site: right antecubital; 08/15 00:17 Follow up: IV Status: Completed infusion me1 00:17 Drug: vancoMYCIN IVPB 1 grams IVPB once over 2 hrs Route: IVPB; Infused Over: 2 hrs; nv1 Site: right antecubital; 01:05 Drug: Heparin ([place]-Bolus No thrombolytic) - HEParin IVP 60 units/kg IVP once; Max 5000 me1 units {Note: per provider.} Route: IVP; Site: left hand; 01:07 Drug: Heparin (DVT/PE Drip) 18 units/kg/[place] - ([place] [address] units, D5W IV 500 ml) IV me1 at calculated rate Per protocol; Max initial rate 1800 units/hr {Co-Signature: lg3 (Eugenia Lima RN).} {Note: 1487 units/hr.} Route: IV; Rate: calculated rate; Site: left hand; Medication: 08/14 20:46 VIS not applicable for this client. me1 Outcome: 23:25 ER care complete, transfer ordered by MD. lundberg 08/15 01:06 Transferred by ground EMS to [facility], me1 Transferred to [facility], Transfer form completed. Note: Report given to Amira Bernal RN. Condition: stable Instructed on the need for transfer, 03:04 Patient left the ED. vc1 Signatures: Dispatcher [employer] EDMS Aniket Saavdera PA PA cp Gibson, Lacie, LUZ RN lg3 Mary Ellen Martinj6 Salome Aquino RN RN vc1 Ursula Garner rv1 Luly Cardoza RN RN me1 Monique Worthy RN RN la4 Eugenia Lima RN lg3 Corrections: (The following items were deleted from the chart) 01:40 01:05 Heparin (MA-Bolus No thrombolytic) - HEParin IVP 6608 units IVP in left hand me1 me1
[2023-08-14 23:32] LABS: Arterial Blood Carboxyhemoglob 1.3 % (0-1.5); Blood Gas Oxyhemoglobin 63.1 % (94-97); Blood O2 Saturation 65.1 % (92-98.5)
[2023-08-15] MEDS ORDERED: HEPARIN 5000 UNIT/ML 1 ML VIAL ONE ×2 (01:03→01:11)
[2023-08-15] MEDS ORDERED: HEPARIN/D5W 25,000 UNIT/500 ML BAG IV ONE (01:03)
[2023-08-15 03:39] VITALS: O2SAT 100
[2023-08-15 03:41] VITALS: TEMP 98.1
[2023-08-15 03:53] VITALS: BP 108/74
--- NOTE | 2023-08-21 14:38 | EKG ---
Test Date: 2023-08-14 Test Time: 21:38:39 Locker Room Manager: MEASUREMENT RESULTS: Intervals: Rate: 113 [place]: 158 QRSD: 84 QT: 336 QTc: 460 [place]: P: 60 [place]: 158 QRS: 72 T: 98 INTERPRETIVE STATEMENTS: Sinus tachycardia ST & T wave abnormality, consider lateral ischemia Abnormal ECG Compared to ECG 07/14/2023 15:54:01 ST (T wave) deviation now present Possible ischemia now present Left posterior fascicular block no longer present T-wave abnormality no longer present Electronically Signed On 08-21-23 14:19:25 VOLUNTEER SERVICES MANAGER by Anibal See
== END 2023-08-15 03:04 | disposition short-term general hospital (02) ==
LOC: ER 20:34
DX: I22.2 Subsequent non-ST elevation (NSTEMI) myocardial infarction (principal); I21.9 Acute myocardial infarction, unspecified; A41.9 Sepsis, unspecified organism; R65.20 Severe sepsis without septic shock; I26.09 Other pulmonary embolism with acute cor pulmonale; I50.40 Unspecified combined systolic (congestive) and diastolic (congestive) heart failure; E11.9 Type 2 diabetes mellitus without complications; Z89.611 Acquired absence of right leg above knee
CPT/HCPCS: 36415; 36600; 71045; 71275; 80053; 81001; 82805; 82947; 83605; 83880; 84484; 85025; 85610; 85730; 87040; 87635; 87804; 93005; 94640; 94660; 99285; J1644; J1940; J2543; J7050; J7613; J7644; Q9967

== ENCOUNTER 2024-04-18 15:56 | Observation (INO) | payer SELFPAY ==
[2024-04-18] MEDS ORDERED: FAMOTIDINE 20 MG/2 ML VIAL IV ONE (18:42)
[2024-04-18] MEDS ORDERED: ONDANSETRON 4 MG/2 ML VIAL ONE (18:42)
[2024-04-18] MEDS ORDERED: NA CHLORIDE 0.9% 1,000 ML ONE (18:43)
[2024-04-18 20:49] LABS: Absolute Basophils 0.1 K/uL (0-0.5); Absolute Eosinophils 0.1 K/uL (0-0.5); Absolute Lymphocytes (CBC) 1.3 K/uL (0.7-4.9); Absolute Monocytes 0.8 K/uL (0.1-1.3); Absolute Neutrophil 7.8 K/uL (1.8-8.0); Basophils % 0.8 % (0-1.3); Eosinophils % 1.3 % (0-4.4); Hematocrit 29.7 % (39.6-49.0); Hemoglobin 10.6 g/dL (13.6-17.9); Lymphocytes % 12.5 % (15.3-44.8); MCH 29.9 pg (27.0-35.0); MCHC 35.8 g/dL (32.0-36.0); MCV 83.6 fL (80-100); MPV 7.7 fL (7.6-11.3); Monocytes % 8.2 % (3.3-12.3); Neutrophils % 77.2 % (41.7-73.7); Nucleated Red Blood Cells % 0.1 % (0-0); Platelets 326 thou/uL (152-406); RBC Red Blood Cell Count 3.55 M/uL (4.33-5.43); Red Cell Distribution Width 14.1 % (12.1-15.2)
[2024-04-18 21:38] LABS: Albumin 2.7 g/dL (3.4-5.0); Albumin/Globulin Ratio 0.7 (1.1-1.8); Anion Gap 9.5 mEq/L (5.0-15.0); Bilirubin Total 0.3 mg/dL (0.2-1.0); Globulin 3.7 g/dL (2.3-3.5); Potassium 4.5 mEq/L (3.5-5.1); Protein, Total 6.4 g/dL (6.4-8.2)
[2024-04-18] MEDS ORDERED: Ringers Lactate 1,000 ML IV ONE (22:01)
[2024-04-19 00:43] LABS: Anion Gap 5.4 mEq/L (5.0-15.0); Potassium 4.4 mEq/L (3.5-5.1)
--- NOTE | 2024-04-19 00:53 | ER ---
Nurse's Notes [facility] Name: Fausto Gusman Age: 44 yrs Sex: Male : 1980 Arrival Date: 04/18/2024 Time: 15:56 Bed 23 Private MD: Diagnosis: Dehydration, prerenal azotemia Presentation: 04/18 16:30 Chief complaint: EMS states: Called for patient being altered. Pt states, "MAYA im all cm10 messed up." pt able to tell me his name. Coronavirus screen: Client denies travel out of the [place] in the last 14 days. Ebola Screen: Patient denies travel to an Ebola-affected area in the 21 days before illness onset. No symptoms or risks identified at this time. Initial Sepsis Screen: Does the patient meet any 2 criteria? Altered Mental Status. Does the patient have a suspected source of infection? No. Patient's initial sepsis screen is negative. Risk Assessment: Do you want to hurt yourself or someone else? Patient reports no desire to harm self or others. Onset of symptoms was April 18, 2024. 16:30 Method Of Arrival: EMS: [facility] cm10 16:30 Acuity: ROSSANA 3 cm10 16:30 Care prior to arrival: IV initiated. 18 GA, in the left antecubital area. cm10 Triage Assessment: 16:30 General: Appears in no apparent distress. comfortable, Behavior is calm. Neuro: No cm10 deficits noted. Level of Consciousness is awake, obeys commands, confused, Oriented to person. Respiratory: No deficits noted. Airway is patent Respiratory effort is even, unlabored, Respiratory pattern is regular, symmetrical. Historical: - Allergies: 18:29 No Known Allergies; cm10 - PMHx: 18:29 diabetes mellitus; cm10 - PSHx: 18:29 Appendectomy; right AKA; cm10 - Immunization history:: Adult Immunizations up to date. - Infectious Disease History:: Denies. - Social history:: Smoking status: unknown. Screenin:33 [facility] ED Fall Risk Assessment (Adult) History of falling in the last 3 months, kj2 including since admission No falls in past 3 months (0 pts) Confusion or Disorientation No (0 pts) Intoxicated or Sedated No (0 pts) Impaired Gait Yes (1 pt) Mobility Assist Device Used Yes (1 pt) Altered Elimination Score/Fall Risk Level 0 - 2 = Low Risk Maintained a safe environment, Hourly rounding (assess needs \\T\\ fall precautionary measures) done. Abuse screen: Denies threats or abuse. Denies injuries from another. Nutritional screening: No deficits noted. Tuberculosis screening: No symptoms or risk factors identified. Assessment: 19:17 General: Appears uncomfortable, Behavior is calm, cooperative, Reports fatigue for. kj2 Pain: Complains of pain in headache Pain currently is 8 out of 10 on a pain scale. Neuro: No deficits noted. Cardiovascular: Patient's skin is warm and dry. Respiratory: No deficits noted. GI: Reports nausea. 20:34 Reassessment: No changes from previously documented assessment. nj1 21:00 Reassessment: Patient and/or family updated on plan of care and expected duration. Pain fu level reassessed. Patient is alert, oriented x 3, equal unlabored respirations, skin warm/dry/pink. 22:00 Reassessment: Patient and/or family updated on plan of care and expected duration. Pain fu level reassessed. Patient denies pain, IVF ongoing. 23:11 Reassessment: Patient and/or family updated on plan of care and expected duration. Pain fu level reassessed. Patient is alert, oriented x 3, equal unlabored respirations, skin warm/dry/pink. 23:33 Reassessment: asleep IVF ongoing. fu Vital Signs: 16:30 BP 192 / 95; Pulse 93; Resp 18; Temp 97.2; Pulse Ox 100% ; cm10 19:22 BP 171 / 88; Pulse 95; Resp 18; Temp 98(O); Pulse Ox 100% on R/A; kj2 20:33 BP 165 / 90; Pulse 90; Resp 18; Pulse Ox 96% ; nj1 22:15 BP 190 / 96; Pulse 97; Resp 16; Pulse Ox 98% on R/A; Pain 0/10; fu 23:00 BP 171 / 91; Pulse 92; Resp 17; Pulse Ox 98% ; Pain 0/10; fu 23:30 BP 178 / 96; Pulse 91; Resp 17; Pulse Ox 100% ; fu 22:15 Pain Scale: Adult fu 23:00 Pain Scale: Adult fu ED Course: 16:30 Arm band placed on Patient placed in a hallway bed. cm10 18:20 Patient arrived in ED. mg5 18:29 Triage completed. cm10 18:30 Zaki Iglesias DO is Attending Physician. ms3 18:37 Estrella Lepe, LUZ is Primary Nurse. nj1 19:15 Maintain EMS IV. Dressing intact. Good blood return noted. Site clean \\T\\ dry. Gauge \\T\\ kj 2 site: 20 gauge left ac. 19:35 Call light in reach. Side rails up X 1. Provided Education on: call light, fall kj2 precaution. 20:32 Report given to Derrick ESCOBAR. nj1 20:42 Attending Physician role handed off by Zaki Iglesias DO sp3 20:42 Catalina Solomon MD is Attending Physician. sp3 21:34 Hand Right 3 View In Process Unspecified. EDMS 22:17 Lactate w/ 2H reflex if indic. Sent. fu 04/19 00:08 BMP: Draw after LR infusion Sent. fu 00:51 Joseph Molina MD is Hospitalizing Provider. sp3 03:04 No provider procedures requiring assistance completed. fu 03:05 Patient admitted, IV remains in place. intact. fu Administered Medications: 04/18 18:26 CANCELLED (Physician Discretion): [id number] mg PO once ms3 18:50 Drug: Ondansetron IVP 4 mg IVP once; over 2 minutes Route: IVP; Site: left antecubital; kj2 18:55 Drug: Famotidine IVP 20 mg IVP once; dilute with 10 mL 0.9% NaCl; give over 2 minutes kj2 Route: IVP; Site: left antecubital; 19:00 Drug: NS 0.9% IV 1000 ml IV at 1000 ml once Route: IV; Rate: 1000 ml; Site: left kj2 antecubital; 22:00 Follow up: Response: No adverse reaction; IV Intake: 1000ml fu 22:15 Drug: Lactated Ringers Solution IV 1000 ml IV at 1000 bolus continuous Route: IV; Rate: fu 1000 bolus; Site: left antecubital; 04/19 00:08 Follow up: Response: No adverse reaction; IV Intake: 1000ml fu 00:10 Follow up: Response: No adverse reaction; IV Intake: 1000ml fu Medication: 04/18 19:34 VIS not applicable for this client. kj2 Intake: 22:00 IV: 1000ml; Total: 1000ml. fu 04/19 00:08 IV: 1000ml; Total: 2000ml. fu 00:10 IV: 1000ml; Total: 3000ml. fu Outcome: 00:52 Decision to Hospitalize by Provider. sp3 03:05 Admitted to ER Hold. Please see [facility] for further documentation. fu 03:05 Condition: good 03:05 Instructed on the need for admit, 14:04 Patient left the ED. ll1 Signatures: Dispatcher [employer] EDMS Derrick Penn, RN RN Nalini Gutierrez RN RN ll1 Zaki Iglesias DO DO ms3 Catalina Solomon MD MD sp3 Estrella Lepe RN RN nj1 Chelly Melchor RN RN 10 Lara Pappas 5 Marga Moscoso, RN RN kj2 Corrections: (The following items were deleted from the chart) 04/18 20:34 20:33 Pulse 90bpm; Resp 18bpm; Pulse Ox 96%; nj1 nj1
--- NOTE | 2024-04-19 00:53 | EDPHYS ---
Physician Documentation [facility] Name: Fausto Gusman Age: 44 yrs Sex: Male : 1980 Arrival Date: 04/18/2024 Time: 15:56 Bed 23 Private MD: ED Physician Catalina Solomon HPI: 04/18 20:50 This 44 yrs old Male presents to ER via EMS with complaints of Heat exhaustion. ms3 20:50 44-year-old male with past medical history of diabetes presents to the emergency ms3 department for heat exhaustion. EMS notes patient stated he was fatigued. Patient denies any pain. Patient denies any alleviating or inciting factors. Historical: - Allergies: 18:29 No Known Allergies; cm10 - PMHx: 18:29 diabetes mellitus; cm10 - PSHx: 18:29 Appendectomy; right AKA; cm10 - Immunization history:: Adult Immunizations up to date. - Infectious Disease History:: Denies. - Social history:: Smoking status: unknown. ROS: 20:50 Constitutional: Negative for fever, and chills. Neck: Negative for injury, pain, and ms3 swelling, Cardiovascular: Negative for chest pain, and palpitations. Respiratory: Negative for shortness of breath, cough, wheezing, and pleuritic chest pain, Abdomen/GI: Negative for abdominal pain, nausea, vomiting, diarrhea, and constipation, Exam: 20:50 Constitutional: This is a well developed, well nourished patient who is awake, alert, ms3 and in no acute distress. Head/Face: Normocephalic, atraumatic. Neck: Trachea midline, no cervical lymphadenopathy. Supple, full range of motion without nuchal rigidity, or vertebral point tenderness. No Meningismus. Chest/axilla: Normal chest wall appearance and motion. Nontender with no deformity. Cardiovascular: Regular rate and rhythm with a normal S1 and S2. No gallops, murmurs, or rubs. Normal PMI, no JVD. No pulse deficits. Respiratory: Lungs have equal breath sounds bilaterally, clear to auscultation and percussion. No rales, rhonchi or wheezes noted. No increased work of breathing, no retractions or nasal flaring. Abdomen/GI: Soft, non-tender, with normal bowel sounds. No distension or tympany. No guarding or rebound. No evidence of tenderness throughout. Skin: Warm, dry with normal turgor. Normal color with no rashes, no lesions, and no evidence of cellulitis. Vital Signs: 16:30 BP 192 / 95; Pulse 93; Resp 18; Temp 97.2; Pulse Ox 100% ; cm10 19:22 BP 171 / 88; Pulse 95; Resp 18; Temp 98(O); Pulse Ox 100% on R/A; kj2 20:33 BP 165 / 90; Pulse 90; Resp 18; Pulse Ox 96% ; nj1 22:15 BP 190 / 96; Pulse 97; Resp 16; Pulse Ox 98% on R/A; Pain 0/10; fu 23:00 BP 171 / 91; Pulse 92; Resp 17; Pulse Ox 98% ; Pain 0/10; fu 23:30 BP 178 / 96; Pulse 91; Resp 17; Pulse Ox 100% ; fu 22:15 Pain Scale: Adult fu 23:00 Pain Scale: Adult fu MDM: 18:30 Patient medically screened. ms3 20:50 Differential Diagnosis: CVA, electrolyte abnormality, hypoglycemia, volume depletion. ms3 20:54 Transition of care: After a detail discussion of the patient's case, care is ms3 transferred to Catalina Solomno MD. 04/18 21:05 Order name: Glucose, Ancillary Testing; Complete Time: 21:39 EDMS 04/18 21:05 Order name: CBC with Automated Diff EDMS 04/18 21:05 Order name: Comprehensive Metabolic Panel; Complete Time: 21:39 EDMS 04/18 21:41 Order name: Lactate w/ 2H reflex if indic.; Complete Time: 23:45 sp3 04/18 22:20 Order name: BMP: Draw after LR infusion sp3 04/19 02:02 Order name: Creatine Phosphokinase EDMS 04/19 02:02 Order name: Urinalysis w/ reflexes EDMS 04/19 02:02 Order name: CBC with Automated Diff EDMS 04/19 02:02 Order name: CBC with Automated Diff EDMS 04/19 02:02 Order name: Comprehensive Metabolic Panel EDMS 04/19 02:02 Order name: Comprehensive Metabolic Panel EDMS 04/19 03:11 Order name: Creatine Phosphokinase EDMS 04/19 07:56 Order name: Glucose, Ancillary Testing EDMS 04/19 11:48 Order name: Glucose, Ancillary Testing EDMS 04/18 21:26 Order name: Hand Right 3 View EDMS Administered Medications: 18:26 CANCELLED (Physician Discretion): [id number] mg PO once ms3 18:50 Drug: Ondansetron IVP 4 mg IVP once; over 2 minutes Route: IVP; Site: left antecubital; kj2 18:55 Drug: Famotidine IVP 20 mg IVP once; dilute with 10 mL 0.9% NaCl; give over 2 minutes kj2 Route: IVP; Site: left antecubital; 19:00 Drug: NS 0.9% IV 1000 ml IV at 1000 ml once Route: IV; Rate: 1000 ml; Site: left kj2 antecubital; 22:00 Follow up: Response: No adverse reaction; IV Intake: 1000ml fu 22:15 Drug: Lactated Ringers Solution IV 1000 ml IV at 1000 bolus continuous Route: IV; Rate: fu 1000 bolus; Site: left antecubital; 04/19 00:08 Follow up: Response: No adverse reaction; IV Intake: 1000ml fu 00:10 Follow up: Response: No adverse reaction; IV Intake: 1000ml fu Disposition Summary: 04/19/24 00:52 Hospitalization Ordered Notes: Hospitalization Status: Observation sp3 Provider: Joseph Molina sp3 Condition: Stable sp3 Problem: an acute exacerbation sp3 Symptoms: have worsened sp3 Bed/Room Type: Standard sp3 Location: [facility] ER HOLD(04/19/24 02:08) Room Assignment: ERHOLD-(04/19/24 02:08) cg Diagnosis - Dehydration, prerenal azotemia sp3 Forms: - Medication Reconciliation Form sp3 - SBAR form sp3 - Leadership Thank You Letter sp3 Signatures: Dispatcher [employer] Taylor Sauceda RN RN cg Derrick Penn RN Zaki Craig DO DO ms3 Catalina Solomon MD MD sp3 Chelly Melchor RN RN cm10 Marga Moscoso RN RN kj2 Corrections: (The following items were deleted from the chart) 04/18 18:26 18:25 Ibuprofen PO 600 mg PO once ordered. ms3 ms3 21:26 21:07 Hand Left 3 View ordered. EDMS EDMS 21:27 21:06 Hand Left 3 View+RAD.RAD.BRZ ordered. EDMS EDMS : 21:06 CBC+H.LAB.BRZ ordered. EDMS EDMS : 21:06 COMPREHENSIVE METABOLIC PANEL+C.LAB.BRZ ordered. EDMS EDMS 04/19 02:08 00:52 Telemetry/MedSurg (observation) sp3 cg 02:08 00:52 sp3 cg
--- NOTE | 2024-04-19 01:55 | P.HP ---
Certification for Inpatient Patient admitted to: Observation With expected LOS: <2 Midnights Practitioner: I am a practitioner with admitting privileges, knowledge of patient current condition, hospital course, and medical plan of care. Services: Services provided to patient in accordance with Admission requirements found in Title 42 Section 412.3 of the Code of Federal Regulations Patient History Date of Service: 04/19/24 Reason for admission: Acute kidney injury History of Present Illness: 44 yrs old Male with past medical history of type 2 diabetes, peripheral vascular disease, right AKA hypertension, hyperlipidemia who was brought to ER with extreme fatigue and generalized weakness started 2 days ago and has been progressively worsening and was brought to ER. He also complains of heat exhaustion. Denies any chest pain or shortness of breath. No nausea vomiting or diarrhea. Complains of fatigue. Patient denies any fever or chills. No sick contacts. Patient was assessed in the ER and was found to have acute kidney injury and was admitted for further management Allergies No Known Allergies Allergy (Unverified 12/05/19 04:20) Home medications list reviewed: Yes Home Medications: Insulin 70/30 NPH/Reg Human [Novolin 70/30*] 10 unit SQ BIDAC #1 vial 12/08/19 - Past Medical/Surgical History Diabetic: No Past Medical History: Reviewed- Non-Contributory -: none Past Surgical History: Reviewed- Non-Contributory -: Laparoscopic appendectomy - Family History Father -: Heart disease, Hypertension Notes: appe. alcoholism. , CHF Mother -: Heart disease, Hypertension - Social History Smoking Status: Never smoker Alcohol use: No CD- Drugs: No Caffeine use: No Review of Systems 10-point ROS is otherwise unremarkable Physical Examination - Vital Signs Temperature: 97.2 F Blood Pressure: 138/76 Pulse: 72 Respirations: 18 Pulse Ox (%): 94 - Physical Exam General: Alert, In no apparent distress, Oriented x3 HEENT: Atraumatic, Normocephalic Neck: Supple, 2+ carotid pulse no bruit Respiratory: Clear to auscultation bilaterally, Normal air movement Cardiovascular: Regular rate/rhythm, Normal S1 S2 Capillary refill: <2 Seconds Gastrointestinal: Soft and benign, W/out hepatosplenomegaly, No ascites Musculoskeletal: No clubbing, No swelling, Other (Right BKA) Integumentary: No rashes, No tenderness/swelling Neurological: Normal speech Lymphatics: No axilla or inguinal lymphadenopathy - Studies Laboratory Data (last 24 hrs) 04/19/24 04/18/24 04/18/24 00:00 19:00 19:00 WBC 10.10 Hgb 10.6 L Hct 29.7 L Plt Count 326 Sodium 138 138 Potassium 4.4 4.5 BUN 34 H 34 H Creatinine 1.83 H 2.17 H Glucose 149 H 169 H Total Bilirubin 0.3 AST 13 L ALT 19 Alkaline Phosphatase 97 04/18/24 04/18/24 18:27 18:27 WBC Cancelled Hgb Cancelled Hct Cancelled Plt Count Cancelled Sodium Cancelled Potassium Cancelled BUN Cancelled Creatinine Cancelled Glucose Cancelled Total Bilirubin Cancelled AST Cancelled ALT Cancelled Alkaline Phosphatase Cancelled Assessment and Plan - Problems (Diagnosis) (1) Acute kidney injury Current Visit: Yes Status: Acute Plan: Acute kidney injury Possibly prerenal IV hydration Monitor closely on telemetry Electrolytes monitor and replace accordingly Will get CK level to rule out rhabdomyolysis Hypertension Antihypertensives titrated Continue home medications and titrate as needed Hyperlipidemia Continue statin Diabetes Insulin sliding scale Accu-Chek before every meal and at bedtime Peripheral vascular disease Status post right BKA Supportive management Anemia of chronic disease Monitor H&H closely No overt bleeding at this time GI/DVT prophylaxis Advanced directive full code Discharge Plan: Home Plan to discharge in: 24 Hours - Advance Directives Does patient have a Living Will: No Does patient have a Durable POA for Healthcare: No - Code Status/Comfort Care Code Status: Full Code Time Spent Managing Pts Care (In Minutes): 48
[2024-04-19] MEDS ORDERED: ONDANSETRON 4 MG/2 ML VIAL IV PRN (01:56)
[2024-04-19] MEDS ORDERED: GLUCAGON 1 MG/VIAL IM PRN (02:00)
[2024-04-19] MEDS ORDERED: D50W 25 GM/50 ML SYRINGE IV PRN (02:00)
[2024-04-19] MEDS ORDERED: D10W 125 ML IV PRN (02:05)
[2024-04-19] MEDS ORDERED: NA CHLORIDE 0.9% 1,000 ML ONE ×2 (02:23→12:50)
[2024-04-19] MEDS: NA CHLORIDE 0.9% 1,000 ML IV SCH (02:27)
[2024-04-19] MEDS ORDERED: ACETAMINOPHEN 325 MG TABLET ONE ×2 (02:39→12:49)
[2024-04-19] MEDS: ACETAMINOPHEN 325 MG TABLET PO PRN (02:40)
[2024-04-19 03:15] LABS: Specific Gravity 1.017 (1.005-1.030); Sqamous Epithelial None Seen /HPF (None Seen); Urine Bacteria <20 /HPF (<20); Urine Bilirubin NEGATIVE (Negative); Urine Blood 2+ (Negative); Urine Clarity Clear (Clear); Urine Color Light-Yellow (Yellow); Urine Culture Reflex Order NOT NEEDED; Urine Glucose 2+ (Negative); Urine Ketones NEGATIVE (Negative); Urine Microscopic Reflex YN ORDER UMIC; Urine Nitrite NEGATIVE (Negative); Urine Protein 3+ (Negative); Urine Sperm Present (None Seen); Urine Urobilinogen Normal (Normal); Urine WBC <5 /HPF (<5)
[2024-04-19] MEDS: HYDRALAZINE HCL 20 MG/ML VIAL IV PRN (10:30)
--- NOTE | 2024-04-19 12:36 | RAD REPORT ---
EXAM DESCRIPTION: RAD - Hand Right 3 View - 04/18/2024 9:32 pm CLINICAL HISTORY: PAIN COMPARISON: None FINDINGS: Three x-ray views of the right hand were submitted. There is no acute fracture or dislocat ion. Bone mineralization is within normal limits. There is no radiopaque foreign body material. IMPRESSION: No acute fracture or dislocation. Electronically signed by: Roe Rneteria MD 04/18/2024 09:54 PM CDT RP Due to temporary technical issues with the PACS/Fluency reporting system, reports are being signed by the in house radiologist without review as a courtesy to ensure prompt reporting. The interpreting r adiologist is fully responsible for the content of the report.
[2024-04-19] MEDS: METOPROLOL TAR 25 MG TAB PO ONE (13:08)
[2024-04-19] MEDS ORDERED: METOPROLOL TAR 25 MG TAB ONE (13:45)
[2024-04-19] MEDS: AMLODIPINE 10 MG TAB PO SCH (17:01)
[2024-04-19] MEDS: ENOXAPARIN 40 MG/0.4 ML SQ SCH (17:01)
[2024-04-19 17:32] LABS: Anion Gap 5.4 mEq/L (5.0-15.0); Potassium 4.4 mEq/L (3.5-5.1)
--- NOTE | 2024-04-19 18:55 | P.PN ---
Date of Service: 04/19/24 Patient seen and examined. He denies any complaint. He reports he feels much stronger now. Blood pressure is severely elevated. JORGE ALBERTO improved, serum creatinine down to 1.4. Plan: Patient started on oral amlodipine Hydralazine as needed for BP spikes. Continue IV hydration and check BMP in am. Continue to monitor BP.
[2024-04-19 21:35] VITALS: O2SAT 97
[2024-04-20 06:17] VITALS: BMI 28.2
[2024-04-20 07:10] LABS: Absolute Basophils 0.1 K/uL (0-0.5); Absolute Eosinophils 0.3 K/uL (0-0.5); Absolute Lymphocytes (CBC) 1.2 K/uL (0.7-4.9); Absolute Monocytes 0.8 K/uL (0.1-1.3); Absolute Neutrophil 5.9 K/uL (1.8-8.0); Basophils % 1.2 % (0-1.3); Eosinophils % 3.1 % (0-4.4); Hematocrit 32.2 % (39.6-49.0); Hemoglobin 11.6 g/dL (13.6-17.9); Lymphocytes % 14.4 % (15.3-44.8); MCHC 36.1 g/dL (32.0-36.0); MCV 83.2 fL (80-100); MPV 7.5 fL (7.6-11.3); Neutrophils % 71.3 % (41.7-73.7); Platelets 341 thou/uL (152-406); RBC Red Blood Cell Count 3.87 M/uL (4.33-5.43); Red Cell Distribution Width 13.6 % (12.1-15.2)
[2024-04-20 07:32] LABS: Albumin 2.7 g/dL (3.4-5.0); Albumin/Globulin Ratio 0.7 (1.1-1.8); Anion Gap 6.4 mEq/L (5.0-15.0); Bilirubin Total 0.4 mg/dL (0.2-1.0); Potassium 4.4 mEq/L (3.5-5.1); Protein, Total 6.7 g/dL (6.4-8.2)
[2024-04-20 08:43] VITALS: TEMP 97.2
--- NOTE | 2024-04-20 09:26 | P.DS ---
Admission Date: 04/19/24 Discharge Date: 04/20/24 Disposition: ROUTINE DISCHARGE Discharge Condition: FAIR Reason for Admission: Acute kidney injury - Problems (1) Heat exhaustion Current Visit: Yes Status: Acute (2) Acute kidney injury Current Visit: Yes Status: Acute (3) Diabetes mellitus type 2 in nonobese Current Visit: No Status: Acute Brief History of Present Illness: 44 yrs old Male with past medical history of type 2 diabetes, peripheral vascular disease, right AKA hypertension, hyperlipidemia who was brought to ER with extreme fatigue and generalized weakness. He also complained of heat exhaustion and fatigue No sick contacts. Patient was assessed in the ER and was found to have elevated BP and acute kidney injury and was admitted for further management. Hospital Course: Patient placed on the observation floor and hydrated with IV NS. Patient's serum creatinine significantly improved to 1.4. I suspect patient is now at baseline renal function. He had severe hypertension which improved with oral amlodipine and IV hydralazine as needed for BP spikes. His BP is currently well-controlled. Patient is not asymptomatic, stable vitals and functional status at baseline. Patient should benefit from addition of lisinopril for hypertension given his history of DM type II. Patient has been referred to diversity manager for further management as outpatient. Vital Signs/Physical Exam: Temp Pulse Resp BP Pulse Ox 97.2 F 93 H 16 108/76 98 04/20/24 08:00 04/20/24 08:00 04/20/24 08:00 04/20/24 08:00 04/20/24 08:00 General: Alert, In no apparent distress, Oriented x3 HEENT: Mucous membr. moist/pink Neck: Supple, JVD not distended Respiratory: Clear to auscultation bilaterally, Normal air movement Cardiovascular: Regular rate/rhythm Gastrointestinal: Normal bowel sounds, Soft and benign, Non-distended Musculoskeletal: No swelling, Other (Right BKA.) Integumentary: No rashes, No cyanosis Neurological: Normal speech, Normal strength at 5/5 x4 extr Laboratory Data at Discharge: WBC 8.30 thou/uL (4.3-10.9) 04/20/24 06:33 Hgb 11.6 g/dL (13.6-17.9) L 04/20/24 06:33 Hct 32.2 % (39.6-49.0) L 04/20/24 06:33 Plt Count 341 thou/uL (152-406) 04/20/24 06:33 Sodium 137 mEq/L (136-145) 04/20/24 06:33 Potassium 4.4 mEq/L (3.5-5.1) 04/20/24 06:33 BUN 24 mg/dL (7-18) H 04/20/24 06:33 Creatinine 1.46 mg/dL (0.70-1.30) H 04/20/24 06:33 Glucose 131 mg/dL (74-106) H 04/20/24 06:33 Total Bilirubin 0.4 mg/dL (0.2-1.0) 04/20/24 06:33 AST 13 U/L (15-37) L 04/20/24 06:33 ALT 17 U/L (16-61) 04/20/24 06:33 Alkaline Phosphatase 98 U/L (45-117) 04/20/24 06:33 Home Medications: Acetaminophen [Tylenol Extra Strength] 500 mg PO Q12HP 04/19/24 Furosemide 20 mg PO DAILY 04/19/24 Insulin Regular, Human [Novolin R] 10 unit SQ TID 04/19/24 lisinopriL [Prinivil*] 20 mg PO DAILY #30 tab 04/20/24 New Medications: lisinopriL [Prinivil*] 20 mg PO DAILY #30 tab Physician Discharge Instructions: PROBLEM: Acute Kidney Injury GOAL: Clear understanding of disease process INSTRUCTIONS: Follow up with PCP within 1-2 weeks and follow up with Kidney Specialist of your choice on see referral. Please call 4th floor nursing station with any questions or concerns [phone]. Please return to ER if symptoms return. Diet: Diabetic Activity: As tolerated COMMUNITY [employer] Services Needed: None Name of Company: Date or Referral: IMMUNIZATION Influenza Vaccine Indicated: Influenza Vaccine Given: Date Given: Pneumonia Vaccine Indicated: No Pneumonia Vaccine Given: Date Given: Diet: ADA Activity: Ad lasha Followup: Alexus Blanc MD [ACTIVE - CAN ADMIT] - (within 2 weeks.) NONE,NONE [Primary Care Provider] - 1-2 Weeks Physician Review: Patient Assessed, Agree with Above Assessment and Plan Time spent managing pt's care (in minutes): 28
[2024-04-20 12:24] VITALS: BP 142/77
== END 2024-04-20 13:50 | disposition home or self-care (01) ==
LOC: ER 15:56 → ERHOLD 04-19 01:56 → 4TH 04-19 13:55
PROVIDERS: ADMIT Family Medicine; ATTEND Internal Medicine
DX: N17.9 Acute kidney failure, unspecified (principal); E86.0 Dehydration; I10 Essential (primary) hypertension; E78.5 Hyperlipidemia, unspecified; E11.9 Type 2 diabetes mellitus without complications; I73.9 Peripheral vascular disease, unspecified; D63.8 Anemia in other chronic diseases classified elsewhere; T67.5XXA Heat exhaustion, unspecified, initial encounter; X58.XXXA Exposure to other specified factors, initial encounter; Y93.9 Activity, unspecified; Y92.9 Unspecified place or not applicable
CPT/HCPCS: 36415; 80048; 80053; 81001; 82550; 82947; 83605; 85025; 94760; 96374; 96375; 99285; G0378; J0360; J1650; J2405; J7030; J7120